=== PATIENT | male | born 1975 ===

== ENCOUNTER 2018-03-21 00:37 | Inpatient (IN) | payer MEDICAID, OTHER ==
[2018-03-21] MEDS ORDERED: Albuterol-Ipratrop 3 mg / 0.5 (3 ml) UD ONE (00:44)
[2018-03-21] MEDS ORDERED: Nitroglycerin 2% Ointment Foilpak UD TOP STA (01:08)
[2018-03-21] MEDS ORDERED: Aspirin 325 mg EC Tablets PO STA (01:08)
[2018-03-21] MEDS ORDERED: Aspirin 325 mg EC Tablets PO ONE (01:21)
[2018-03-21] MEDS ORDERED: Nitroglycerin 2% Ointment Foilpak UD TOP ONE (01:21)
[2018-03-21 01:25] LABS: BASO # 0.1 K/uL (0.0-0.2); BASO % 0.6 % (0.0-2.0); EOS # 0.2 K/uL (0.0-0.7); EOS % 1.8 % (0.0-4.0); HEMOGLOBIN 15.3 g/dL (12.0-18.0); LYMPH # 1.3 K/uL (1.0-4.3); MEAN CELL VOLUME 80.1 fL (80.0-94.0); MEAN CORPUSCULAR HEMOGLOBIN 26.7 pg (27.0-31.0); MEAN CORPUSCULAR HGB CONC 33.3 g/dL (33.0-37.0); MEAN PLATELET VOLUME 8.8 fL (7.2-11.7); MONO # 0.6 K/uL (0.0-0.8); MONO % 5.6 % (0.0-10.0); NEUT # 8.6 K/uL (1.8-7.0); NRBC % 0.2 % (0.0-2.0); RBC 5.72 Mil/uL (4.40-5.90); RED CELL DISTRIBUTION WIDTH 17.2 % (11.5-14.5); WHITE BLOOD COUNT 10.8 K/uL (4.8-10.8)
[2018-03-21 01:41] LABS: INR 1.1; PROTHROMBIN TIME 12.4 SECONDS (9.7-12.2)
[2018-03-21 01:53] LABS: URINE BILIRUBIN NEGATIVE (NEGATIVE); URINE BLOOD NEGATIVE (NEGATIVE); URINE CLARITY Clear (Clear); URINE COLOR Straw (YELLOW); URINE GLUCOSE (UA) 1+ mg/dL (Normal); URINE LEUKOCYTE ESTERASE NEG Leu/uL (Negative); URINE PROTEIN 3+ mg/dL (NEGATIVE); URINE UROBILINOGEN NORMAL mg/dL (0.2-1.0)
[2018-03-21] MEDS ORDERED: Metoprolol 1 mg/ml Inj IVP STA (01:55)
[2018-03-21 02:01] LABS: ALBUMIN 4.3 g/dL (3.5-5.0); CALCIUM 9.2 mg/dl (8.6-10.4)
[2018-03-21] MEDS ORDERED: Metoprolol 1 mg/ml Inj IVP ONE (02:01)
[2018-03-21] MEDS ORDERED: Morphine 4 MG/ML VIAL ONE (02:02)
[2018-03-21 02:09] LABS: BARBITURATES, UR NEGATIVE (NEGATIVE); BENZODIAZEPINES, UR NEGATIVE (NEGATIVE); OPIATES, UR NEGATIVE (NEGATIVE); PHENCYCLIDINE, UR NEGATIVE (NEGATIVE)
[2018-03-21 02:30] LABS: CK-MB 3.71 ng/mL (0.0-3.38); TROPONIN I 0.372 ng/mL (0.00-0.120)
[2018-03-21] MEDS ORDERED: Potassium Chloride 20 mEq/15 ml LIQ UD PO STA ×2 (02:35→05:04)
[2018-03-21] MEDS ORDERED: Potassium Chloride 20 mEq/15 ml LIQ UD ONE (02:46)
--- NOTE | 2018-03-21 02:54 | C.PDOC ---
History Of Present Illness 42 y/o male with a PMHx of hypertension brought in by EMS complaining of shortness of breath and chest pain for 1 hour. 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 Pain has been worsening since onset. On arrival patient is tachycardiac, tachypnic, and diaphoretic with O2 sat of 90% on room air. Patient has rales bilaterally, nebulizer treatment started by nurse in triage. Time Seen by Provider: 03/21/18 01:01 Chief Complaint (Nursing): Shortness Of Breath History Per: Patient History/Exam Limitations: no limitations Onset/Duration Of Symptoms: Hrs Current Symptoms Are (Timing): Still Present Associated Symptoms: Sweating, Chest Pain Additional History Per: EMS Past Medical History Reviewed: Historical Data, Nursing Documentation, Vital Signs Vital Signs: Last Vital Signs Temp 98.9 F 03/21/18 00:54 Pulse 106 H 03/21/18 05:25 Resp 21 03/21/18 05:01 BP 191/131 H 03/21/18 05:01 Pulse Ox 97 03/21/18 05:01 - Medical History PMH: HTN Surgical History: No Surg Hx Family History: States: No Known Family Hx - Social History Hx Tobacco Use: No Hx Alcohol Use: No Hx Substance Use: No Review Of Systems Except As Marked, All Systems Reviewed And Found Negative. Constitutional: Positive for: Sweats Eyes: Negative for: Vision Change Cardiovascular: Positive for: Chest Pain Respiratory: Positive for: Shortness of Breath Gastrointestinal: Negative for: Nausea, Vomiting Musculoskeletal: Negative for: Leg Pain (or swelling) Neurological: Negative for: Weakness, Numbness, Headache, Dizziness Physical Exam - Physical Exam Appears: In Acute Distress (SOB, diaphoretic, tachycardic, tachypnic) Skin: Warm, Diaphoretic Head: Atraumatic, Normacephalic Eye(s): bilateral: Normal Inspection, PERRL, EOMI Nose: Normal Oral Mucosa: Moist Neck: Normal ROM, Supple Chest: Symmetrical, No Tenderness Cardiovascular: Rhythm Regular (tachycardic), No Murmur Respiratory: Rales (b/l), No Rhonchi, No Wheezing Gastrointestinal/Abdominal: Soft, No Tenderness, No Distention Back: Normal Inspection, No CVA Tenderness, No Vertebral Tenderness Extremity: Pedal Edema (1+), No Calf Tenderness Extremity: Bilateral: Atraumatic, Normal Color And Temperature, Normal ROM Pulses: Left Dorsalis Pedis: Normal, Right Dorsalis Pedis: Normal Neurological/Psych: Oriented x3, Normal Speech, Normal Cognition, Normal Motor, Normal Sensation ED Course And Treatment - Laboratory Results Result Diagrams: 03/21/18 01:22 03/21/18 01:23 ECG: Interpreted By Me, Viewed By Me (and ED attending, Dr. Becker) ECG Rhythm: Sinus Tachycardia, ST/T Changes (ST elevations at anterior leads) ECG Interpretation: Abnormal Rate From EC O2 Sat by Pulse Oximetry: 97 (Non-Rebreather) Pulse Ox Interpretation: Normal Progress Note: Initiated cardiac work-up including EKG, CXR, and labs with cardiac enzymes. Patient given 325 mg Aspirin PO and 40 mg Lasix IV, with NTG 2 % applied topically. Patient continuing to complain of persistent chest pain. Ordered IV Morphine. Ordered 5mg Metoprolol. On reevaluation, heart rate decreased to mid 90s. Labs reviewed and are significant for (+) troponin 0.37, hypokalemia, elevated CK-MB. Ordered 20 meq potassium chloride PO. 2:31 am Spoke with patients PMD, Dr. Garcia, who agrees with plan for admission to ICU and requests Dr. Cabrera for field assistant consult. 2:[address] Norwood, who accepts patient for admission to ICU and recommends holding the heparin drip. Repeat EKG shows anteriolateral ST and T changes, at 95 bpm Disposition Counseled Patient/Family Regarding: Studies Performed, Diagnosis - Disposition Disposition: HOSPITALIZED Disposition Time: 02:52 Condition: SERIOUS - POA Core Measure Indicators: Chest Pain - Clinical Impression Clinical Impression: Acute VA, Hypokalemia, Renal insufficiency, Hypertension - PA / ASSOCIATE PROFESSOR OF COUNSELING / Resident Statement MD/DO has reviewed & agrees with the documentation as recorded. - Scribe Statement The provider has reviewed the documentation as recorded by the Scribe (Hortensia Mireles) All medical record entries made by the Scribe were at my direction and personally dictated by me. I have reviewed the chart and agree that the record accurately reflects my personal performance of the history, physical exam, medical decision making, and the department course for this patient. I have also personally directed, reviewed, and agree with the discharge instructions and disposition. Decision To Admit - Pt Status Changed To: Hospital Disposition Of: Inpatient - Admit Certification Admit to Inpatient:: After my assessment, the patient will require hospitalization for at least two midnights. This is because of the severity of symptoms shown, intensity of services needed, and/or the medical risk in this patient being treated as an outpatient. - InPatient: Physician Admission Certification: I certify that this patient requires 2 or more midnights of care for the following reason:: Patient with acute VA will be admitted to ICU - . Bed Request Type: ICU Patient Diagnosis: Acute VA, Hypokalemia, Renal insufficiency, Hypertension
--- NOTE | 2018-03-21 02:55 | C.PDOC ---
Chief Complaint (Nursing): Shortness Of Breath Past Medical History Vital Signs: Last Vital Signs Temp 98.9 F 03/21/18 00:54 Pulse 90 03/21/18 02:18 Resp 28 H 03/21/18 02:18 BP 200/137 H 03/21/18 02:18 Pulse Ox 97 03/21/18 02:18 - Medical History PMH: HTN - Social History Hx Alcohol Use: No Hx Substance Use: No ED Course And Treatment - Laboratory Results Result Diagrams: 03/21/18 01:22 03/21/18 01:23 O2 Sat by Pulse Oximetry: 97 Disposition - Disposition Disposition: HOSPITALIZED Disposition Time: 02:52 Condition: SERIOUS Forms: [facility] (Turkish) - Clinical Impression Clinical Impression: Acute KS, Hypokalemia, Renal insufficiency, Hypertension Decision To Admit - Pt Status Changed To: Hospital Disposition Of: Inpatient - Admit Certification Admit to Inpatient:: After my assessment, the patient will require hospitalization for at least two midnights. This is because of the severity of symptoms shown, intensity of services needed, and/or the medical risk in this patient being treated as an outpatient. - InPatient: Physician Admission Certification: I certify that this patient requires 2 or more midnights of care for the following reason:: Patient with acute KS will be admitted to ICU - . Bed Request Type: ICU Admitting Physician: Wes Garcia Patient Diagnosis: Acute KS, Hypokalemia, Renal insufficiency, Hypertension
[2018-03-21] MEDS ORDERED: Nitroglycerin 50mg in D5W 50 MG/250 ML BOTTLE IV SCH (04:45)
--- NOTE | 2018-03-21 05:03 | CP.PCM.CON ---
History of Present Illness - History of Present Illness History of Present Illness: 42 M with h/o long time HTN, not taking medications as he felt fine for years, obese around 10 pm last night c/o sob, and some chest pain, sob got worse, breathing became shallow and fast and hence he came to ER. In ER BP was 240/160 range, SOB, hr in 130's, CXR showed interstitial edema. EKG initial read as anterior st elevations, but not clearly visible on er assessment, repeat EKG showed LVH with strain pattern. Initial labs showed creat 1.9, trop 0.4. Patient was given NTG paste, iv metoprolol, lasix, in ER and felt significantly better, bp 199/130 hr in 90's, RR 18/min, patient talking calmly, no distress. Denies orthopnea/pnd, had 1 lesser episode a wk ago. 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 Review of Systems - Review of Systems All systems: reviewed and no additional remarkable complaints except (HPI) Past Patient History - Past Medical History & Family History Past Medical History?: Yes - Past Social History Smoking Status: Never Smoked Alcohol: None Home Situation {Lives}: With Family Domestic Violence: Negative - CARDIAC Hx Cardiac Disorders: Yes Hx Hypertension: Yes - PULMONARY Hx Respiratory Disorders: No - NEUROLOGICAL Hx Neurological Disorder: No - HEENT Hx HEENT Problems: No Hx Cataracts: Yes - RENAL Hx Chronic Kidney Disease: No - ENDOCRINE/METABOLIC Hx Endocrine Disorders: Yes Hx Diabetes Mellitus Type 2: Yes - HEMATOLOGICAL/ONCOLOGICAL Hx Blood Disorders: No - INTEGUMENTARY Hx Dermatological Problems: No - MUSCULOSKELETAL/RHEUMATOLOGICAL Hx Musculoskeletal Disorders: No - GASTROINTESTINAL Hx Gastrointestinal Disorders: No - GENITOURINARY/GYNECOLOGICAL Hx Genitourinary Disorders: No - PSYCHIATRIC Hx Psychophysiologic Disorder: No Hx Substance Use: No - SURGICAL HISTORY Hx Surgeries: Yes Hx Herniorrhaphy: Yes Other/Comment: prostate sx - ANESTHESIA Hx Anesthesia: Yes Hx Anesthesia Reactions: No Hx Malignant Hyperthermia: No Has any member of the family had a problem w/ anesthesia?: No Meds Allergies/Adverse Reactions: Allergies Allergy/AdvReac Type Severity Reaction Status Date / Time No Known Allergies Allergy Verified 03/21/18 01:04 - Medications Medications: Current Medications Carvedilol (Coreg) 6.25 mg PO BID RORO Furosemide (Lasix) 40 mg IVP DAILY RORO Hydralazine HCl (Apresoline) 25 mg PO TID RORO Nitroglycerin/Dextrose (Nitroglycerin 50 Mg/250 Ml D5w) 50 mg in 250 mls @ 30 mls/hr IV .Q8H20M RORO; 100 MCG/MIN PRN Reason: Protocol Physical Exam - Additional Findings Additional findings: * HEENT MAXIMILIAN * Neck supple * Chest rales b/l, slight prolonged expiration * CVS Regular, no gallop, or murmur * PA soft, obese * Ext 2+ edema b/l * LAUNCH ENGINEER awake, oriented x3 no fnd * Skin normal turgor. * Results - Vital Signs Recent Vital Signs: Last Vital Signs Temp 98.9 F 03/21/18 00:54 Pulse 100 H 03/21/18 04:19 Resp 21 03/21/18 04:19 BP 191/131 H 03/21/18 04:19 Pulse Ox 96 03/21/18 04:19 - Labs Result Diagrams: 03/21/18 01:22 03/21/18 01:23 Labs: Laboratory Results - last 24 hr 03/21/18 03/21/18 03/21/18 01:22 01:23 01:23 WBC 10.8 RBC 5.72 Hgb 15.3 Hct 45.8 MCV 80.1 MCH 26.7 L MCHC 33.3 RDW 17.2 H Plt Count 245 MPV 8.8 Neut % (Auto) 80.0 H Lymph % (Auto) 12.0 L [place] % (Auto) 5.6 Eos % (Auto) 1.8 Baso % (Auto) 0.6 Neut # (Auto) 8.6 H Lymph # (Auto) 1.3 [place] # (Auto) 0.6 Eos # (Auto) 0.2 Baso # (Auto) 0.1 PT 12.4 H INR 1.1 APTT 36 H D-Dimer, Quantitative 244 H Sodium 145 Potassium 3.1 L Chloride 107 Carbon Dioxide 27 Anion Gap 14 BUN 24 H Creatinine 1.9 H Est GFR ( Amer) 48 Est GFR (Non-Af Amer) 39 Random Glucose 156 H Calcium 9.2 Total Bilirubin 0.7 AST 43 ALT 77 H Alkaline Phosphatase 147 H Total Creatine Kinase 88 CK-MB (Mass) 3.71 H Troponin I 0.3720 H* Total Protein 8.7 H Albumin 4.3 Globulin 4.4 H Albumin/Globulin Ratio 1.0 Urine Color Urine Clarity Urine pH Ur Specific [place] Urine Protein Urine Glucose (UA) Urine Ketones Urine Blood Urine Nitrate Urine Bilirubin Urine Urobilinogen Ur Leukocyte Esterase Urine WBC (Auto) Urine RBC (Auto) Urine Opiates Screen Urine Methadone Screen Ur Barbiturates Screen Ur Phencyclidine Scrn Ur Amphetamines Screen U Benzodiazepines Scrn U Oth Cocaine Metabols U Cannabinoids Screen 03/21/18 03/21/18 01:44 01:44 WBC RBC Hgb Hct MCV MCH MCHC RDW Plt Count MPV Neut % (Auto) Lymph % (Auto) [place] % (Auto) Eos % (Auto) Baso % (Auto) Neut # (Auto) Lymph # (Auto) [place] # (Auto) Eos # (Auto) Baso # (Auto) PT INR APTT D-Dimer, Quantitative Sodium Potassium Chloride Carbon Dioxide Anion Gap BUN Creatinine Est GFR ( Amer) Est GFR (Non-Af Amer) Random Glucose Calcium Total Bilirubin AST ALT Alkaline Phosphatase Total Creatine Kinase CK-MB (Mass) Troponin I Total Protein Albumin Globulin Albumin/Globulin Ratio Urine Color Straw Urine Clarity Clear Urine pH 6.0 Ur Specific [place] 1.010 Urine Protein 3+ H Urine Glucose (UA) 1+ H Urine Ketones Negative Urine Blood Negative Urine Nitrate Negative Urine Bilirubin Negative Urine Urobilinogen Normal Ur Leukocyte Esterase Neg Urine WBC (Auto) 3 Urine RBC (Auto) 1 Urine Opiates Screen Negative Urine Methadone Screen Negative Ur Barbiturates Screen Negative Ur Phencyclidine Scrn Negative Ur Amphetamines Screen Negative U Benzodiazepines Scrn Negative U Oth Cocaine Metabols Negative U Cannabinoids Screen Negative Assessment & Plan - Assessment and Plan (Free Text) Assessment: * Acute HTN related heart failure * HTN renal injury, with pritienuria likely transient as total prol and albumin normal * Non compliance * Obese * Possible sleep apea Plan: * Stat repeat trop if relatively unchanged then continue treating htn heart disease, if significantly elevated may need anticoagulation * start with high dose, nitro drip then taper, * Nitrates, arteriodilators, betablocker as initial regime, lasix as needed. * Echo * GI/DVT prophylaxis * Random prot/creat ratio, 24 hr protein * ASA * Counselled about compliance * See orders for detail.
[2018-03-21 06:30] LABS: CK-MB 71.1 ng/mL (0.0-3.38); TROPONIN I 10.9 ng/mL (0.00-0.120)
--- NOTE | 2018-03-21 07:58 | CP.PCM.HP ---
History of Present Illness - History of Present Illness History of Present Illness: Chief Complaint : Shortness Of Breath History Of Present Illness 42 M with h/o long time HTN, brought in by EMS complaining of shortness of breath and chest pain for 1 hour. pt reports not taking medications as he felt fine for years, obese around 10 pm last night c/o sob, and some chest pain, sob got worse, breathing became shallow and fast and hence he came to ER. In ER BP was 240/160 range, SOB, hr in 130's, CXR showed interstitial edema. EKG initial read as anterior st elevations, but not clearly visible on er assessment, repeat EKG showed LVH with strain pattern. Initial labs showed creat 1.9, trop 0.4. Patient was given NTG paste, iv metoprolol, lasix, in ER and felt significantly better, bp 199/130 hr in 90's, RR 18/min, patient talking calmly, no distress. Denies orthopnea/pnd, had 1 lesser episode a wk ago. 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 Present on Admission - Present on Admission Any Indicators Present on Admission: Yes Review of Systems - Review of Systems Systems not reviewed;Unavailable: Acuity of Condition - Constitutional Constitutional: Fatigue, Lethargy, Weakness - EENT Eyes: absent: As Per HPI, Blind Spots, Blurred Vision, Change in Vision, Decreased Night Vision, Diplopia, Discharge, Dry Eye, Exophthalmos, Floaters, Irritation, Itchy Eyes, Loss of Peripheral Vision, Pain, Photophobia, Requires Corrective Lenses, Sees Flashes, Spots in Vision, Tunnel Vision, Other Visual Disturbances, Loss of Vision, Other Nose/Mouth/Throat: absent: As Per HPI, Epistaxis, Nasal Congestion, Nasal Discharge, Nasal Obstruction, Nasal Trauma, Nose Pain, Post Nasal Drip, Sinus Pain, Sinus Pressure, Bleeding Gums, Change in Voice, Dental Pain, Dry Mouth, Dysphagia, Halitosis, Hoarsness, Lip Swelling, Mouth Lesions, Mouth Pain, Odynophagia, Sore Throat, Throat Swelling, Tongue Swelling, Facial Pain, Neck Pain, Neck Mass, Other - Cardiovascular Cardiovascular: Chest Pain, Diaphoresis, Dyspnea on Exertion - Respiratory Respiratory: Dyspnea - Gastrointestinal Gastrointestinal: absent: As Per HPI, Abdominal Pain, Belching, Bloating, Change in Bowel Habits, Change in Stool Character, Coffee Ground Emesis, Constipation, Cramping, Diarrhea, Dyspepsia, Dysphagia, Early Satiety, Excessive Flatus, Fecal Incontinence, Heartburn, Hematemesis, Hematochezia, Loose Stools, Melena, Nausea, Odynophagia, Temesmus, Vomiting, Other Past Patient History - Past Medical History & Family History Past Medical History?: Yes - Past Social History Smoking Status: Never Smoked - CARDIAC Hx Hypertension: Yes - PULMONARY Hx Respiratory Disorders: No - NEUROLOGICAL Hx Neurological Disorder: No - HEENT Hx HEENT Problems: No Hx Cataracts: Yes - RENAL Hx Chronic Kidney Disease: No - ENDOCRINE/METABOLIC Hx Endocrine Disorders: Yes Hx Diabetes Mellitus Type 2: Yes - HEMATOLOGICAL/ONCOLOGICAL Hx Blood Disorders: No - INTEGUMENTARY Hx Dermatological Problems: No - MUSCULOSKELETAL/RHEUMATOLOGICAL Hx Falls: No - GASTROINTESTINAL Hx Gastrointestinal Disorders: No - GENITOURINARY/GYNECOLOGICAL Hx Genitourinary Disorders: No - PSYCHIATRIC Hx Substance Use: No - SURGICAL HISTORY Hx Surgeries: Yes Hx Herniorrhaphy: Yes Other/Comment: prostate sx - ANESTHESIA Hx Anesthesia: Yes Hx Anesthesia Reactions: No Hx Malignant Hyperthermia: No Has any member of the family had a problem w/ anesthesia?: No Meds Allergies/Adverse Reactions: Allergies Allergy/AdvReac Type Severity Reaction Status Date / Time No Known Allergies Allergy Verified 03/21/18 01:04 Physical Exam - Constitutional Appears: Well, No Acute Distress - Head Exam Head Exam: NORMAL INSPECTION - Eye Exam Eye Exam: EOMI, Normal appearance, PERRL Pupil Exam: NORMAL ACCOMODATION, PERRL - ENT Exam ENT Exam: Mucous Membranes Moist, Normal Exam - Respiratory Exam Respiratory Exam: Clear to Auscultation Bilateral, NORMAL BREATHING PATTERN - Cardiovascular Exam Cardiovascular Exam: Tachycardia, +S1, +S2, +S4 - GI/Abdominal Exam GI & Abdominal Exam: Normal Bowel Sounds, Soft. absent: Tenderness Results - Vital Signs Recent Vital Signs: Last Vital Signs Temp 98.6 F 03/21/18 06:00 Pulse 98 H 03/21/18 06:40 Resp 27 H 03/21/18 06:40 BP 179/117 H 03/21/18 06:20 Pulse Ox 95 03/21/18 06:40 - Labs Result Diagrams: 03/22/18 06:32 03/22/18 05:22 Labs: Laboratory Results - last 24 hr 03/21/18 03/21/18 03/21/18 01:22 01:23 01:23 WBC 10.8 RBC 5.72 Hgb 15.3 Hct 45.8 MCV 80.1 MCH 26.7 L MCHC 33.3 RDW 17.2 H Plt Count 245 MPV 8.8 Neut % (Auto) 80.0 H Lymph % (Auto) 12.0 L [place] % (Auto) 5.6 Eos % (Auto) 1.8 Baso % (Auto) 0.6 Neut # (Auto) 8.6 H Lymph # (Auto) 1.3 [place] # (Auto) 0.6 Eos # (Auto) 0.2 Baso # (Auto) 0.1 PT 12.4 H INR 1.1 APTT 36 H D-Dimer, Quantitative 244 H Sodium 145 Potassium 3.1 L Chloride 107 Carbon Dioxide 27 Anion Gap 14 BUN 24 H Creatinine 1.9 H Est GFR ( Amer) 48 Est GFR (Non-Af Amer) 39 Random Glucose 156 H Calcium 9.2 Total Bilirubin 0.7 AST 43 ALT 77 H Alkaline Phosphatase 147 H Total Creatine Kinase 88 CK-MB (Mass) 3.71 H Troponin I 0.3720 H* Total Protein 8.7 H Albumin 4.3 Globulin 4.4 H Albumin/Globulin Ratio 1.0 Urine Color Urine Clarity Urine pH Ur Specific [place] Urine Protein Urine Glucose (UA) Urine Ketones Urine Blood Urine Nitrate Urine Bilirubin Urine Urobilinogen Ur Leukocyte Esterase Urine WBC (Auto) Urine RBC (Auto) Urine Opiates Screen Urine Methadone Screen Ur Barbiturates Screen Ur Phencyclidine Scrn Ur Amphetamines Screen U Benzodiazepines Scrn U Oth Cocaine Metabols U Cannabinoids Screen 03/21/18 03/21/18 03/21/18 01:44 01:44 04:31 WBC RBC Hgb Hct MCV MCH MCHC RDW Plt Count MPV Neut % (Auto) Lymph % (Auto) [place] % (Auto) Eos % (Auto) Baso % (Auto) Neut # (Auto) Lymph # (Auto) [place] # (Auto) Eos # (Auto) Baso # (Auto) PT INR APTT D-Dimer, Quantitative Sodium Potassium Chloride Carbon Dioxide Anion Gap BUN Creatinine Est GFR ( Amer) Est GFR (Non-Af Amer) Random Glucose Calcium Total Bilirubin AST ALT Alkaline Phosphatase Total Creatine Kinase CK-MB (Mass) 71.1 H Troponin I 10.9000 H* Total Protein Albumin Globulin Albumin/Globulin Ratio Urine Color Straw Urine Clarity Clear Urine pH 6.0 Ur Specific [place] 1.010 Urine Protein 3+ H Urine Glucose (UA) 1+ H Urine Ketones Negative Urine Blood Negative Urine Nitrate Negative Urine Bilirubin Negative Urine Urobilinogen Normal Ur Leukocyte Esterase Neg Urine WBC (Auto) 3 Urine RBC (Auto) 1 Urine Opiates Screen Negative Urine Methadone Screen Negative Ur Barbiturates Screen Negative Ur Phencyclidine Scrn Negative Ur Amphetamines Screen Negative U Benzodiazepines Scrn Negative U Oth Cocaine Metabols Negative U Cannabinoids Screen Negative Assessment & Plan (1) Acute LA Status: Acute (2) CAD (coronary artery disease) Status: Acute (3) Hypertension Status: Acute (4) Non compliance w medication regimen Status: Acute
[2018-03-21] MEDS: Heparin25000 units/250ml 1/2NS 25,000 UNITS/250 ML BAG IV PRN (08:55)
--- NOTE | 2018-03-21 09:16 | RAD ---
HISTORY: f/u chf COMPARISON: Portable chest 03/21/2018, 1:15 a.m.. FINDINGS: LUNGS: No active pulmonary disease. PLEURA: No significant pleural effusion identified, no pneumothorax apparent. CARDIOVASCULAR: Cardiomegaly reiterated with mild pulmonary venous congestion again evident, not significantly changed in the interval. OSSEOUS STRUCTURES: No significant abnormalities. VISUALIZED UPPER ABDOMEN: Normal. OTHER FINDINGS: None. IMPRESSION: Mild pulmonary vascular congestion appreciated, not simply changed in the interval. No definitive infiltrate or pleural effusion identified bilaterally.
[2018-03-21] MEDS ORDERED: Pantoprazole 40 mg EC Tab PO SCH (10:00)
[2018-03-21] MEDS: Acetylcysteine 20% Inhal Soln (4ml) PO SCH ×2 (10:57→22:45)
--- NOTE | 2018-03-21 11:20 | RAD ---
PROCEDURE: CHEST RADIOGRAPH, 1 VIEW HISTORY: SOB COMPARISON: None available. FINDINGS: LUNGS: Increased opacities appreciate in the bilateral lung chan of the function of grossly increased reticular markings without definite alveolitis. PLEURA: No pneumothorax or pleural fluid seen. CARDIOVASCULAR: Cardiomegaly is apparent. The vascular markings are somewhat obscured by a markedly increased reticular markings. Active CHF is suspected. OSSEOUS STRUCTURES: No significant abnormalities. VISUALIZED UPPER ABDOMEN: Normal. OTHER FINDINGS: None. IMPRESSION: Consider active CHF versus interstitial pneumonitis.
--- NOTE | 2018-03-21 22:52 | CP.PCM.CON ---
History of Present Illness - History of Present Illness History of Present Illness: CC: Episode of Chest Pain yesterday HPI:42 M with hx of HTN, non compliant with mediaction admitted for Non ST elevation [place]. Started on appeopriate medaications Currently denies chest pain and dyspnea Review of Systems - Constitutional Constitutional: absent: As Per HPI, Anorexia, Chills, Daytime Sleepiness, Excessive Sweating, Fatigue, Fever, Frequent Falls, Headache, Increased Appetite , Lethargy, Malaise, Night Sweats, Snoring, Sleep Apnea, Weight Gain, Weight Loss, Weakness, Other - EENT Eyes: absent: As Per HPI, Blind Spots, Blurred Vision, Change in Vision, Decreased Night Vision, Diplopia, Discharge, Dry Eye, Exophthalmos, Floaters, Irritation, Itchy Eyes, Loss of Peripheral Vision, Pain, Photophobia, Requires Corrective Lenses, Sees Flashes, Spots in Vision, Tunnel Vision, Other Visual Disturbances, Loss of Vision, Other Ears: absent: As Per HPI, Decreased Hearing, Ear Discharge, Ear Pain, Tinnitus, Abnormal Hearing, Disequilibrium, Dizziness, Other Nose/Mouth/Throat: absent: As Per HPI, Epistaxis, Nasal Congestion, Nasal Discharge, Nasal Obstruction, Nasal Trauma, Nose Pain, Post Nasal Drip, Sinus Pain, Sinus Pressure, Bleeding Gums, Change in Voice, Dental Pain, Dry Mouth, Dysphagia, Halitosis, Hoarsness, Lip Swelling, Mouth Lesions, Mouth Pain, Odynophagia, Sore Throat, Throat Swelling, Tongue Swelling, Facial Pain, Neck Pain, Neck Mass, Other - Cardiovascular Cardiovascular: absent: As Per HPI, Acrocyanosis, Chest Pain, Chest Pain at Rest , Chest Pain with Activity, Claudication, Diaphoresis, Dyspnea, Dyspnea on Exertion, Edema, Irregular Heart Rhythm, Pain Radiating to Arm/Neck/Jaw, Leg Edema, Leg Ulcers, Lightheadedness, Orthopnea, Palpitations, Paroxysmal Nocturnal Dyspnea, Pedal Edema, Radiating Pain, Rapid Heart Rate, Slow Heart Rate, Syncope, Other - Respiratory Respiratory: absent: As Per HPI, Cough, Dyspnea, Hemoptysis, Dyspnea on Exertion , Wheezing, Snoring, Stridor, Pain on Inspiration, Chest Congestion, Excessive Mucous Production, Change in Mucous Color, Pain with Coughing, Other - Gastrointestinal Gastrointestinal: absent: As Per HPI, Abdominal Pain, Belching, Bloating, Change in Bowel Habits, Change in Stool Character, Coffee Ground Emesis, Constipation, Cramping, Diarrhea, Dyspepsia, Dysphagia, Early Satiety, Excessive Flatus, Fecal Incontinence, Heartburn, Hematemesis, Hematochezia, Loose Stools, Melena, Nausea, Odynophagia, Temesmus, Vomiting, Other - Genitourinary Genitourinary: absent: As Per HPI, Change in Urinary Stream, Difficulty Urinating, Dysuria, Flank Pain, Hematuria, Pyuria, Nocturia, Urinary Incontinence, Urinary Frequency, Urinary Hesitance, Urinary Urgency, Voiding Freq/Small Amts, Freq UTI, Hx Renal/Bladder Calculi, Hx /Renal Surgery, Bladder Distension, Other - Musculoskeletal Musculoskeletal: absent: As Per HPI, Abnormal Gait, Arthralgias, Atrophy, Back Pain, Deformity, Joint Swelling, Limited Range of Motion, Loss of Height, Muscle Cramps, Muscle Weakness, Myalgias, Neck Pain, Numbness, Radiating Pain into Limb, Stiffness, Tingling, Other - Integumentary Integumentary: absent: As Per HPI, Acne, Alopecia, Bleeding Lesions, Change in Hair, Change in Nails, Change in Pigmentation, Changing Lesions, Dry Skin, Erythema, Furuncle, Hirsutism, Lesions, New Lesions, Non-Healing Lesions, Photosensitivity, Pruritus, Rash, Skin Pain, Skin Ulcer, Sores, Striae, Swelling , Unusual Bruising, Wounds, Jaundice, Other - Neurological Neurological: absent: As Per HPI, Abnormal Gait, Abnormal Hearing, Abnormal Movements, Abnormal Speech, Behavioral Changes, Burning Sensations, Confusion, Convulsions, Disequilibrium, Dizziness, Numbness, Focal Weakness, Frequent Falls , Headaches, Lack of Coordination, Loss of Vision, Memory Loss, Paresthesias, Radicular Pain, Restless Legs, Sensory Deficit, Syncope, Tingling, Tremor, Vertigo, Weakness, Other Visual Disturbances, Other - Psychiatric Psychiatric: absent: As Per HPI, Abnormal Sleep Pattern, Anhedonia, Anxiety, Auditory Hallucinations, Behavioral Changes, Change in Appetite, Change in Libido, Confusion, Depression, Difficulty Concentrating, Hallucinations, Homicidal Ideation, Hopelessness, Irritability, Memory Loss, Mood Swings, Panic Attacks, Paranoia, Suicidal Ideation, Visual Hallucinations, Tactile Hallucinations, Other Past Patient History - Past Medical History & Family History Past Medical History?: Yes - Past Social History Smoking Status: Never Smoked - CARDIAC Hx Hypertension: Yes - PULMONARY Hx Respiratory Disorders: No - NEUROLOGICAL Hx Neurological Disorder: No - HEENT Hx HEENT Problems: No Hx Cataracts: Yes - RENAL Hx Chronic Kidney Disease: No - ENDOCRINE/METABOLIC Hx Endocrine Disorders: Yes Hx Diabetes Mellitus Type 2: Yes - HEMATOLOGICAL/ONCOLOGICAL Hx Blood Disorders: No - INTEGUMENTARY Hx Dermatological Problems: No - MUSCULOSKELETAL/RHEUMATOLOGICAL Hx Falls: No - GASTROINTESTINAL Hx Gastrointestinal Disorders: No - GENITOURINARY/GYNECOLOGICAL Hx Genitourinary Disorders: No - PSYCHIATRIC Hx Substance Use: No - SURGICAL HISTORY Hx Surgeries: Yes Hx Herniorrhaphy: Yes Other/Comment: prostate sx - ANESTHESIA Hx Anesthesia: Yes Hx Anesthesia Reactions: No Hx Malignant Hyperthermia: No Has any member of the family had a problem w/ anesthesia?: No Meds Allergies/Adverse Reactions: Allergies Allergy/AdvReac Type Severity Reaction Status Date / Time No Known Allergies Allergy Verified 03/21/18 01:04 - Medications Medications: Current Medications Acetylcysteine (Acetylcysteine 20%) 8 ml PO Q12H [facility] Stop: 03/22/18 22:16 Last Admin: 03/21/18 10:57 Dose: 8 ml Aspirin (Ecotrin) 325 mg PO DAILY [facility] Carvedilol (Coreg) 25 mg PO BID [facility] Last Admin: 03/21/18 18:34 Dose: 25 mg Clopidogrel Bisulfate (Plavix) 75 mg PO DAILY [facility] Last Admin: 03/21/18 10:43 Dose: Not Given Famotidine (Pepcid) 20 mg PO DAILY [facility] Last Admin: 03/21/18 10:41 Dose: 20 mg Furosemide (Lasix) 40 mg IVP DAILY [facility] Last Admin: 03/21/18 10:41 Dose: 40 mg Hydralazine HCl (Apresoline) 25 mg PO TID [facility] Last Admin: 03/21/18 18:29 Dose: 25 mg Heparin Sodium/Sodium Chloride (Heparin 47943 Units/250ml 1/2 Normal Saline) 25 ,000 units in 250 mls @ 18.289 mls/hr IV .[id number] PRN; Protocol; 12 UNITS/KG/HR PRN Reason: ADJUST RATE PER PROTOCOL Last Titration: 03/21/18 17:00 Dose: 9 units/kg/hr, 13.717 mls/hr Rosuvastatin Calcium (Crestor) 10 mg PO HS [facility] Physical Exam - Head Exam Head Exam: ATRAUMATIC, NORMAL INSPECTION - Eye Exam Eye Exam: EOMI, Normal appearance Pupil Exam: NORMAL ACCOMODATION, PERRL - ENT Exam ENT Exam: Mucous Membranes Moist, Normal Exam - Neck Exam Neck exam: Positive for: Normal Inspection - Respiratory Exam Respiratory Exam: Clear to Auscultation Bilateral - Cardiovascular Exam Cardiovascular Exam: REGULAR RHYTHM, +S1, +S2 - GI/Abdominal Exam GI & Abdominal Exam: Normal Bowel Sounds - Extremities Exam Extremities exam: Positive for: full ROM - Neurological Exam Neurological exam: Alert, CN II-XII Intact, Oriented x3 - Skin Skin Exam: Warm Results - Vital Signs Recent Vital Signs: Last Vital Signs Temp 98.3 F 03/21/18 20:00 Pulse 77 03/21/18 22:30 Resp 17 03/21/18 22:30 BP 145/85 03/21/18 22:08 Pulse Ox 94 L 03/21/18 22:30 - Labs Result Diagrams: 03/21/18 01:22 03/21/18 01:23 Labs: Laboratory Results - last 24 hr 03/21/18 03/21/18 03/21/18 01:22 01:23 01:23 WBC 10.8 RBC 5.72 Hgb 15.3 Hct 45.8 MCV 80.1 MCH 26.7 L MCHC 33.3 RDW 17.2 H Plt Count 245 MPV 8.8 Neut % (Auto) 80.0 H Lymph % (Auto) 12.0 L [place] % (Auto) 5.6 Eos % (Auto) 1.8 Baso % (Auto) 0.6 Neut # (Auto) 8.6 H Lymph # (Auto) 1.3 [place] # (Auto) 0.6 Eos # (Auto) 0.2 Baso # (Auto) 0.1 PT 12.4 H INR 1.1 APTT 36 H D-Dimer, Quantitative 244 H Sodium 145 Potassium 3.1 L Chloride 107 Carbon Dioxide 27 Anion Gap 14 BUN 24 H Creatinine 1.9 H Est GFR ( Amer) 48 Est GFR (Non-Af Amer) 39 Random Glucose 156 H Hemoglobin A1c Calcium 9.2 Magnesium Total Bilirubin 0.7 AST 43 ALT 77 H Alkaline Phosphatase 147 H Total Creatine Kinase 88 CK-MB (Mass) 3.71 H Troponin I 0.3720 H* Total Protein 8.7 H Albumin 4.3 Globulin 4.4 H Albumin/Globulin Ratio 1.0 Urine Color Urine Clarity Urine pH Ur Specific [place] Urine Protein Urine Glucose (UA) Urine Ketones Urine Blood Urine Nitrate Urine Bilirubin Urine Urobilinogen Ur Leukocyte Esterase Urine WBC (Auto) Urine RBC (Auto) Urine Opiates Screen Urine Methadone Screen Ur Barbiturates Screen Ur Phencyclidine Scrn Ur Amphetamines Screen U Benzodiazepines Scrn U Oth Cocaine Metabols U Cannabinoids Screen 03/21/18 03/21/18 03/21/18 01:44 01:44 04:31 WBC RBC Hgb Hct MCV MCH MCHC RDW Plt Count MPV Neut % (Auto) Lymph % (Auto) [place] % (Auto) Eos % (Auto) Baso % (Auto) Neut # (Auto) Lymph # (Auto) [place] # (Auto) Eos # (Auto) Baso # (Auto) PT INR APTT D-Dimer, Quantitative Sodium Potassium Chloride Carbon Dioxide Anion Gap BUN Creatinine Est GFR ( Amer) Est GFR (Non-Af Amer) Random Glucose Hemoglobin A1c Calcium Magnesium Total Bilirubin AST ALT Alkaline Phosphatase Total Creatine Kinase CK-MB (Mass) 71.1 H Troponin I 10.9000 H* Total Protein Albumin Globulin Albumin/Globulin Ratio Urine Color Straw Urine Clarity Clear Urine pH 6.0 Ur Specific [place] 1.010 Urine Protein 3+ H Urine Glucose (UA) 1+ H Urine Ketones Negative Urine Blood Negative Urine Nitrate Negative Urine Bilirubin Negative Urine Urobilinogen Normal Ur Leukocyte Esterase Neg Urine WBC (Auto) 3 Urine RBC (Auto) 1 Urine Opiates Screen Negative Urine Methadone Screen Negative Ur Barbiturates Screen Negative Ur Phencyclidine Scrn Negative Ur Amphetamines Screen Negative U Benzodiazepines Scrn Negative U Oth Cocaine Metabols Negative U Cannabinoids Screen Negative 03/21/18 03/21/18 03/21/18 11:16 11:16 15:20 WBC RBC Hgb Hct MCV MCH MCHC RDW Plt Count MPV Neut % (Auto) Lymph % (Auto) [place] % (Auto) Eos % (Auto) Baso % (Auto) Neut # (Auto) Lymph # (Auto) [place] # (Auto) Eos # (Auto) Baso # (Auto) PT INR APTT 152 H* D D-Dimer, Quantitative Sodium Potassium Chloride Carbon Dioxide Anion Gap BUN Creatinine Est GFR ( Amer) Est GFR (Non-Af Amer) Random Glucose Hemoglobin A1c 5.4 Calcium Magnesium 1.6 Total Bilirubin AST ALT Alkaline Phosphatase Total Creatine Kinase CK-MB (Mass) Troponin I 80.0000 H* Total Protein Albumin Globulin Albumin/Globulin Ratio Urine Color Urine Clarity Urine pH Ur Specific [place] Urine Protein Urine Glucose (UA) Urine Ketones Urine Blood Urine Nitrate Urine Bilirubin Urine Urobilinogen Ur Leukocyte Esterase Urine WBC (Auto) Urine RBC (Auto) Urine Opiates Screen Urine Methadone Screen Ur Barbiturates Screen Ur Phencyclidine Scrn Ur Amphetamines Screen U Benzodiazepines Scrn U Oth Cocaine Metabols U Cannabinoids Screen 03/21/18 17:08 WBC RBC Hgb Hct MCV MCH MCHC RDW Plt Count MPV Neut % (Auto) Lymph % (Auto) [place] % (Auto) Eos % (Auto) Baso % (Auto) Neut # (Auto) Lymph # (Auto) [place] # (Auto) Eos # (Auto) Baso # (Auto) PT INR APTT D-Dimer, Quantitative Sodium Potassium Chloride Carbon Dioxide Anion Gap BUN Creatinine Est GFR ( Amer) Est GFR (Non-Af Amer) Random Glucose Hemoglobin A1c Calcium Magnesium Total Bilirubin AST ALT Alkaline Phosphatase Total Creatine Kinase CK-MB (Mass) Troponin I 72.2000 H* Total Protein Albumin Globulin Albumin/Globulin Ratio Urine Color Urine Clarity Urine pH Ur Specific [place] Urine Protein Urine Glucose (UA) Urine Ketones Urine Blood Urine Nitrate Urine Bilirubin Urine Urobilinogen Ur Leukocyte Esterase Urine WBC (Auto) Urine RBC (Auto) Urine Opiates Screen Urine Methadone Screen Ur Barbiturates Screen Ur Phencyclidine Scrn Ur Amphetamines Screen U Benzodiazepines Scrn U Oth Cocaine Metabols U Cannabinoids Screen Assessment & Plan - Assessment and Plan (Free Text) Assessment: 42 male admitted with ACS peak Trop 70 CKD with Creatinine of 1.9 Cardiac cath tomorrow Renal consult Continue anti thrombotic therapy NPO after MN except meds
[2018-03-21] MEDS ORDERED: Sodium Chloride 0.45% 1,000 ML IV SCH (23:15)
[2018-03-22] MEDS: Heparin25000 units/250ml 1/2NS 25,000 UNITS/250 ML BAG IV PRN ×2 (02:21→06:37)
[2018-03-22 05:33] LABS: BASO # 0.1 K/uL (0.0-0.2); BASO % 0.6 % (0.0-2.0); EOS # 0.1 K/uL (0.0-0.7); LYMPH # 1.5 K/uL (1.0-4.3); LYMPH % 14.3 % (20.0-40.0); MEAN CELL VOLUME 80.5 fL (80.0-94.0); MEAN CORPUSCULAR HEMOGLOBIN 26.8 pg (27.0-31.0); MEAN CORPUSCULAR HGB CONC 33.3 g/dL (33.0-37.0); MEAN PLATELET VOLUME 8.9 fL (7.2-11.7); MONO % 9.2 % (0.0-10.0); NEUT # 7.9 K/uL (1.8-7.0); NEUT % 74.9 % (50.0-75.0); NRBC % 0.2 % (0.0-2.0); RBC 4.72 Mil/uL (4.40-5.90); RED CELL DISTRIBUTION WIDTH 17.2 % (11.5-14.5); WHITE BLOOD COUNT 10.5 K/uL (4.8-10.8)
[2018-03-22 05:53] LABS: HEMOGLOBIN 12.7 g/dL (12.0-18.0)
[2018-03-22 06:34] LABS: HEMOGLOBIN 11.9 g/dL (12.0-18.0); MEAN CELL VOLUME 80.4 fL (80.0-94.0); MEAN CORPUSCULAR HEMOGLOBIN 26.7 pg (27.0-31.0); MEAN CORPUSCULAR HGB CONC 33.3 g/dL (33.0-37.0); MEAN PLATELET VOLUME 8.7 fL (7.2-11.7); RBC 4.44 Mil/uL (4.40-5.90); RED CELL DISTRIBUTION WIDTH 17.1 % (11.5-14.5); WHITE BLOOD COUNT 9.5 K/uL (4.8-10.8)
[2018-03-22 07:29] LABS: ALB/GLOB RATIO 0.9 (1.0-2.1); ALBUMIN 3.4 g/dL (3.5-5.0); CALCIUM 8.4 mg/dl (8.6-10.4); TROPONIN I 37.4 ng/mL (0.00-0.120)
[2018-03-22] MEDS: Magnesium Sulfate 1 gm in D5W 1 GM/100 ML BAG IVPB SCH ×2 (08:53→09:17)
[2018-03-22] MEDS: Aspirin 325 mg EC Tablets PO SCH (09:03)
[2018-03-22] MEDS: Acetylcysteine 20% Inhal Soln (4ml) PO SCH ×3 (09:03→22:12)
--- NOTE | 2018-03-22 10:12 | CP.PCM.CON ---
History of Present Illness - History of Present Illness History of Present Illness: pt is seen and examined, full consult is dictated #[id number] 1. HTN 2.ckd-3 3.nephrotic range proteinuria r/o ch Gn such as FSGS sec to obesity vs HTN nephrosclerosis 4. NSTEMI pt will have a mild- moderate risk for GWEN about 50% and the need for Hd is about 10-12 % pt was exaplained the risks and benefits, pt verbalized understanding c/w ivf 1/2 ns at 70 ml/hr c/w mucomyst 600 mg po q 12 hrs f/w bmp daily check hept.b,c serology, mansi, anca, c3,c4, upep,spep u/s kidneys for size, f/u 24 hr up,cr, cr cl Past Patient History - Past Medical History & Family History Past Medical History?: Yes - Past Social History Smoking Status: Never Smoked - CARDIAC Hx Hypertension: Yes - PULMONARY Hx Respiratory Disorders: No - NEUROLOGICAL Hx Neurological Disorder: No - HEENT Hx HEENT Problems: No Hx Cataracts: Yes - RENAL Hx Chronic Kidney Disease: No - ENDOCRINE/METABOLIC Hx Endocrine Disorders: Yes Hx Diabetes Mellitus Type 2: Yes - HEMATOLOGICAL/ONCOLOGICAL Hx Blood Disorders: No - INTEGUMENTARY Hx Dermatological Problems: No - MUSCULOSKELETAL/RHEUMATOLOGICAL Hx Falls: No - GASTROINTESTINAL Hx Gastrointestinal Disorders: No - GENITOURINARY/GYNECOLOGICAL Hx Genitourinary Disorders: No - PSYCHIATRIC Hx Substance Use: No - SURGICAL HISTORY Hx Surgeries: Yes Hx Herniorrhaphy: Yes Other/Comment: prostate sx - ANESTHESIA Hx Anesthesia: Yes Hx Anesthesia Reactions: No Hx Malignant Hyperthermia: No Has any member of the family had a problem w/ anesthesia?: No Meds Allergies/Adverse Reactions: Allergies Allergy/AdvReac Type Severity Reaction Status Date / Time No Known Allergies Allergy Verified 03/21/18 01:04 - Medications Medications: Current Medications Acetylcysteine (Acetylcysteine 20%) 8 ml PO Q12H [facility] Stop: 03/22/18 22:16 Last Admin: 03/22/18 09:52 Dose: Not Given Aspirin (Ecotrin) 325 mg PO DAILY [facility] Last Admin: 03/22/18 09:03 Dose: 325 mg Carvedilol (Coreg) 25 mg PO BID [facility] Last Admin: 03/22/18 09:03 Dose: Not Given Clopidogrel Bisulfate (Plavix) 75 mg PO DAILY [facility] Last Admin: 03/22/18 09:03 Dose: 75 mg Famotidine (Pepcid) 20 mg PO DAILY [facility] Last Admin: 03/22/18 09:02 Dose: 20 mg Furosemide (Lasix) 40 mg IVP DAILY [facility] Last Admin: 03/21/18 10:41 Dose: 40 mg Hydralazine HCl (Apresoline) 25 mg PO TID [facility] Last Admin: 03/22/18 09:03 Dose: Not Given Sodium Chloride (Sodium Chloride 0.45%) 1,000 mls @ 70 mls/hr IV .[id number] [facility] Stop: 03/22/18 23:59 Last Admin: 03/22/18 00:00 Dose: 70 mls/hr Heparin Sodium/Sodium Chloride (Heparin 04191 Units/250ml 1/2 Normal Saline) 25 ,000 units in 250 mls @ 16.765 mls/hr IV .[id number] PRN; Protocol; 11 UNITS/KG/HR PRN Reason: ADJUST RATE PER PROTOCOL Last Admin: 03/22/18 06:37 Dose: 11 units/kg/hr, 16.765 mls/hr Rosuvastatin Calcium (Crestor) 10 mg PO HS [facility] Last Admin: 03/21/18 22:45 Dose: 10 mg Results - Vital Signs Recent Vital Signs: Last Vital Signs Temp 98.4 F 03/22/18 08:00 Pulse 73 03/22/18 10:00 Resp 16 03/22/18 10:00 BP 134/73 03/22/18 09:57 Pulse Ox 98 03/22/18 10:00 - Labs Result Diagrams: 03/22/18 06:32 03/22/18 05:22 Labs: Laboratory Results - last 24 hr 03/21/18 03/21/18 03/21/18 11:16 11:16 15:20 WBC RBC Hgb Hct MCV MCH MCHC RDW Plt Count MPV Neut % (Auto) Lymph % (Auto) [place] % (Auto) Eos % (Auto) Baso % (Auto) Neut # (Auto) Lymph # (Auto) [place] # (Auto) Eos # (Auto) Baso # (Auto) APTT 152 H* D Sodium Potassium Chloride Carbon Dioxide Anion Gap BUN Creatinine Est GFR ( Amer) Est GFR (Non-Af Amer) Random Glucose Hemoglobin A1c 5.4 Calcium Phosphorus Magnesium 1.6 Total Bilirubin AST ALT Alkaline Phosphatase Troponin I 80.0000 H* Total Protein Albumin Globulin Albumin/Globulin Ratio Urine Collection Time Urine Total Volume Ur Protein 24 Hr Calc 03/21/18 03/21/18 03/22/18 17:08 23:45 05:22 WBC 10.5 RBC 4.72 Hgb 12.7 D Hct 38.0 MCV 80.5 MCH 26.8 L MCHC 33.3 RDW 17.2 H Plt Count 194 MPV 8.9 Neut % (Auto) 74.9 Lymph % (Auto) 14.3 L [place] % (Auto) 9.2 Eos % (Auto) 1.0 Baso % (Auto) 0.6 Neut # (Auto) 7.9 H Lymph # (Auto) 1.5 [place] # (Auto) 1.0 H Eos # (Auto) 0.1 Baso # (Auto) 0.1 APTT 50 H D Sodium Potassium Chloride Carbon Dioxide Anion Gap BUN Creatinine Est GFR ( Amer) Est GFR (Non-Af Amer) Random Glucose Hemoglobin A1c Calcium Phosphorus Magnesium Total Bilirubin AST ALT Alkaline Phosphatase Troponin I 72.2000 H* Total Protein Albumin Globulin Albumin/Globulin Ratio Urine Collection Time Urine Total Volume Ur Protein 24 Hr Calc 03/22/18 03/22/18 03/22/18 05:22 05:22 06:32 WBC 9.5 RBC 4.44 Hgb 11.9 L Hct 35.7 MCV 80.4 MCH 26.7 L MCHC 33.3 RDW 17.1 H Plt Count 198 MPV 8.7 Neut % (Auto) Lymph % (Auto) [place] % (Auto) Eos % (Auto) Baso % (Auto) Neut # (Auto) Lymph # (Auto) [place] # (Auto) Eos # (Auto) Baso # (Auto) APTT 38 H D Sodium 138 Potassium 3.4 L Chloride 102 Carbon Dioxide 25 Anion Gap 14 BUN 30 H Creatinine 1.8 H Est GFR ( Amer) 51 Est GFR (Non-Af Amer) 42 Random Glucose 108 Hemoglobin A1c Calcium 8.4 L Phosphorus 4.2 Magnesium 1.7 Total Bilirubin 0.7 AST 162 H D ALT 76 H Alkaline Phosphatase 107 Troponin I 37.4000 H* Total Protein 7.1 Albumin 3.4 L D Globulin 3.7 Albumin/Globulin Ratio 0.9 L Urine Collection Time Urine Total Volume Ur Protein 24 Hr Calc 03/22/18 08:24 WBC RBC Hgb Hct MCV MCH MCHC RDW Plt Count MPV Neut % (Auto) Lymph % (Auto) [place] % (Auto) Eos % (Auto) Baso % (Auto) Neut # (Auto) Lymph # (Auto) [place] # (Auto) Eos # (Auto) Baso # (Auto) APTT Sodium Potassium Chloride Carbon Dioxide Anion Gap BUN Creatinine Est GFR ( Amer) Est GFR (Non-Af Amer) Random Glucose Hemoglobin A1c Calcium Phosphorus Magnesium Total Bilirubin AST ALT Alkaline Phosphatase Troponin I Total Protein Albumin Globulin Albumin/Globulin Ratio Urine Collection Time 24 Urine Total Volume 2375 Ur Protein 24 Hr Calc 1615.0 H
[2018-03-22] MEDS ORDERED: Iodixanol 320 MG/ML 200 ML BOTTLE IV ONE (10:18)
[2018-03-22] MEDS ORDERED: Nitroglycerin 50mg in D5W 50 MG/250 ML BOTTLE IV ONE (10:18)
[2018-03-22] MEDS ORDERED: Midazolam 2 MG/2 ML VIAL ONE (10:47)
[2018-03-22] MEDS ORDERED: Verapamil 2 ML ONE (10:51)
[2018-03-22 11:08] LABS: COMPLEMENT C4 65.3 mg/dL (14.0-44.0)
[2018-03-22 11:41] LABS: HEPATITIS C ANTIBODY NEGATIVE (NEGATIVE)
--- NOTE | 2018-03-22 11:59 | CP.PCM.PN ---
Subjective - Date & Time of Evaluation Date of Evaluation: 03/22/18 Time of Evaluation: 11:55 - Subjective Subjective: Patient s/p Cath 1. 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 Genao for CABG EP consult with Dr. Penny for Life Vest D/C palvix Resume Heparin IV 2 hours after removal of radial band D/C IV fluids Follow BUN/Creatinine Objective - Vital Signs/Intake and Output Vital Signs (last 24 hours): Temp Pulse Resp BP Pulse Ox 98.4 F 73 16 134/73 98 03/22/18 08:00 03/22/18 10:00 03/22/18 10:00 03/22/18 09:57 03/22/18 10:00 Intake and Output: 03/22/18 03/22/18 06:59 18:59 Intake Total 1001.1 320.1 Output Total 550 550 Balance 451.1 -229.9 - Medications Medications: Current Medications Acetylcysteine (Acetylcysteine 20%) 8 ml PO Q12H [facility] Stop: 03/22/18 22:16 Last Admin: 03/22/18 09:52 Dose: Not Given Aspirin (Ecotrin) 325 mg PO DAILY [facility] Last Admin: 03/22/18 09:03 Dose: 325 mg Carvedilol (Coreg) 25 mg PO BID [facility] Last Admin: 03/22/18 09:03 Dose: Not Given Clopidogrel Bisulfate (Plavix) 75 mg PO DAILY [facility] Last Admin: 03/22/18 09:03 Dose: 75 mg Famotidine (Pepcid) 20 mg PO DAILY [facility] Last Admin: 03/22/18 09:02 Dose: 20 mg Furosemide (Lasix) 40 mg IVP DAILY [facility] Last Admin: 03/21/18 10:41 Dose: 40 mg Hydralazine HCl (Apresoline) 25 mg PO TID [facility] Last Admin: 03/22/18 09:03 Dose: Not Given Sodium Chloride (Sodium Chloride 0.45%) 1,000 mls @ 70 mls/hr IV .[id number] [facility] Stop: 03/22/18 23:59 Last Admin: 03/22/18 00:00 Dose: 70 mls/hr Heparin Sodium/Sodium Chloride (Heparin 01428 Units/250ml 1/2 Normal Saline) 25 ,000 units in 250 mls @ 16.765 mls/hr IV .[id number] PRN; Protocol; 11 UNITS/KG/HR PRN Reason: ADJUST RATE PER PROTOCOL Last Admin: 03/22/18 06:37 Dose: 11 units/kg/hr, 16.765 mls/hr Rosuvastatin Calcium (Crestor) 10 mg PO HS [facility] Last Admin: 03/21/18 22:45 Dose: 10 mg - Labs Labs: 03/22/18 06:32 03/22/18 05:22 PT 12.4 SECONDS (9.7-12.2) H 03/21/18 01:23 INR 1.1 03/21/18 01:23 APTT 38 SECONDS (21-34) H D 03/22/18 05:22
[2018-03-22 12:11] LABS: HEPATITIS B SURFACE AG Negative (NEGATIVE)
[2018-03-22 12:17] LABS: HEPATITIS A IGM NEGATIVE (NEGATIVE); HEPATITIS B CORE AB NEGATIVE (NEGATIVE)
--- NOTE | 2018-03-22 13:34 | CP.CCUPN ---
CCU Subjective - Physician Review Events Since Last Encounter (Free Text): 03/22/18 13:33 Patient is a 42-year-old male with a history of hypertension noncompensatory medication admitted to the hospital with a non-ST elevation [place]. Patient also had impending heart failure. Now having no chest pain. Seen by geospatial engineer. Underwent angiogram today. Critical Care Time Spent (in minutes): 45 CCU Objective - Vital Signs / Intake & Output Vital Signs (Last 4 hours): Vital Signs Temp Pulse Resp BP Pulse Ox 03/22/18 13:29 139/78 03/22/18 13:15 87 18 139/78 03/22/18 13:00 80 23 100 03/22/18 12:50 81 19 98 03/22/18 12:46 82 18 149/94 H 97 03/22/18 12:45 81 15 149/94 H 03/22/18 12:40 80 22 99 03/22/18 12:34 80 18 150/90 99 03/22/18 12:30 80 17 150/90 98 03/22/18 12:20 74 20 98 03/22/18 12:15 74 18 138/88 98 03/22/18 12:10 73 18 98 03/22/18 12:00 98.5 F 74 18 97 03/22/18 11:57 98.5 F 74 19 139/87 97 03/22/18 11:56 76 21 141/89 97 03/22/18 11:55 83 13 03/22/18 10:10 71 18 97 03/22/18 10:00 73 16 98 03/22/18 09:57 74 19 134/73 98 03/22/18 09:50 71 19 98 03/22/18 09:40 80 20 97 Intake and Output (Last 8hrs): Intake & Output 03/21/18 03/22/18 03/22/18 22:59 06:59 14:59 Intake Total 460.4 946.3 470.1 Output Total 1200 550 550 Balance -739.6 396.3 -79.9 Weight 341 lb Intake: IV 120 130 Intake, IV Amount 100.4 616.3 260.1 Right Antecubital 100.4 27.4 Right Hand 98.9 50.1 Right Hand 2 490 210 Oral 240 200 210 Output: Urine 1200 550 550 Urine, Voided 1200 550 550 - Physical Exam Narrative Physical Exam (Free Text): 03/22/18 13:33 On examination: Obeys Chest good air entry Regular heart sounds Nontender abdomen Extremity is no pedal edema [place] alert awake oriented 3 no functional neurological deficit Labs reviewed in Elevated troponin noted Labs reviewed Medications reviewed Spoke to the geospatial engineer - Medications Active Medications: Active Medications Generic Name Dose Route Start Last Admin Trade Name Freq PRN Reason Stop Dose Admin Acetylcysteine 8 ml 03/21/18 10:15 03/22/18 09:52 Acetylcysteine 20% PO 03/22/18 22:16 Not Given Q12H RORO Aspirin 325 mg 03/22/18 10:00 03/22/18 09:03 Ecotrin PO 325 mg DAILY RORO Administration Carvedilol 25 mg 03/21/18 10:00 03/22/18 09:03 Coreg PO Not Given BID RORO Famotidine 20 mg 03/21/18 10:00 03/22/18 09:02 Pepcid PO 20 mg DAILY RORO Administration Furosemide 40 mg 03/21/18 10:00 03/22/18 13:29 Lasix IVP 40 mg DAILY RORO Administration Hydralazine HCl 25 mg 03/21/18 14:00 03/22/18 09:03 Apresoline PO Not Given TID RORO Heparin Sodium/Sodium Chloride 25,000 units in 250 mls @ 16.765 mls/hr 06:11 03/22/18 06:37 Heparin 70136 Units/250ml 1/2 Normal Saline IV 11 units/kg/hr .[id number] PRN 16.765 mls/hr ADJUST RATE PER PROTOCOL Administration Protocol 11 UNITS/KG/HR Rosuvastatin Calcium 10 mg 03/21/18 22:00 03/21/18 22:45 Crestor PO 10 mg HS RORO Administration - Patient Studies Lab Studies: Lab Studies 03/22/18 03/22/18 03/22/18 Range/Units 10:17 10:17 08:24 WBC (4.8-10.8) K/uL RBC (4.40-5.90) Mil/uL Hgb (12.0-18.0) g/dL Hct (35.0-51.0) % MCV (80.0-94.0) fL MCH (27.0-31.0) pg MCHC (33.0-37.0) g/dL RDW (11.5-14.5) % Plt Count (130-400) K/uL MPV (7.2-11.7) fL Neut % (Auto) (50.0-75.0) % Lymph % (Auto) (20.0-40.0) % [place] % (Auto) (0.0-10.0) % Eos % (Auto) (0.0-4.0) % Baso % (Auto) (0.0-2.0) % Neut # (Auto) (1.8-7.0) K/uL Lymph # (Auto) (1.0-4.3) K/uL [place] # (Auto) (0.0-0.8) K/uL Eos # (Auto) (0.0-0.7) K/uL Baso # (Auto) (0.0-0.2) K/uL APTT (21-34) SECONDS Sodium (132-148) mmol/L Potassium (3.6-5.2) mmol/L Chloride (98-107) mmol/L Carbon Dioxide (22-30) mmol/L Anion Gap (10-20) BUN (9-20) mg/dL Creatinine (0.8-1.5) mg/dL Est GFR ( Amer) Est GFR (Non-Af Amer) Random Glucose (75-110) mg/dL Calcium (8.6-10.4) mg/dl Phosphorus (2.5-4.5) mg/dL Magnesium (1.6-2.3) mg/dL Total Bilirubin (0.2-1.3) mg/dL AST (17-59) U/L ALT (21-72) U/L Alkaline Phosphatase (38-126) U/L Troponin I (0.00-0.120) ng/mL Total Protein (6.3-8.3) g/dL Albumin (3.5-5.0) g/dL Globulin (2.2-3.9) gm/dL Albumin/Globulin Ratio (1.0-2.1) Urine Collection Time 24 HRS Urine Total Volume 2375 mL Ur Protein 24 Hr Calc 1615.0 H (42-225) mg/24hr Complement C3 127.0 (88.0-165.0) mg/dL Complement C4 65.3 H (14.0-44.0) mg/dL Hepatitis A IgM Ab Negative (NEGATIVE) Hep Bs Antigen Negative (NEGATIVE) Hep B Core IgM Ab Negative (NEGATIVE) Hepatitis C Antibody Negative (NEGATIVE) 03/22/18 03/22/18 03/22/18 Range/Units 06:32 05:22 05:22 WBC 9.5 (4.8-10.8) K/uL RBC 4.44 (4.40-5.90) Mil/uL Hgb 11.9 L (12.0-18.0) g/dL Hct 35.7 (35.0-51.0) % MCV 80.4 (80.0-94.0) fL MCH 26.7 L (27.0-31.0) pg MCHC 33.3 (33.0-37.0) g/dL RDW 17.1 H (11.5-14.5) % Plt Count 198 (130-400) K/uL MPV 8.7 (7.2-11.7) fL Neut % (Auto) (50.0-75.0) % Lymph % (Auto) (20.0-40.0) % [place] % (Auto) (0.0-10.0) % Eos % (Auto) (0.0-4.0) % Baso % (Auto) (0.0-2.0) % Neut # (Auto) (1.8-7.0) K/uL Lymph # (Auto) (1.0-4.3) K/uL [place] # (Auto) (0.0-0.8) K/uL Eos # (Auto) (0.0-0.7) K/uL Baso # (Auto) (0.0-0.2) K/uL APTT 38 H D (21-34) SECONDS Sodium 138 (132-148) mmol/L Potassium 3.4 L (3.6-5.2) mmol/L Chloride 102 (98-107) mmol/L Carbon Dioxide 25 (22-30) mmol/L Anion Gap 14 (10-20) BUN 30 H (9-20) mg/dL Creatinine 1.8 H (0.8-1.5) mg/dL Est GFR ( Amer) 51 Est GFR (Non-Af Amer) 42 Random Glucose 108 (75-110) mg/dL Calcium 8.4 L (8.6-10.4) mg/dl Phosphorus 4.2 (2.5-4.5) mg/dL Magnesium 1.7 (1.6-2.3) mg/dL Total Bilirubin 0.7 (0.2-1.3) mg/dL AST 162 H D (17-59) U/L ALT 76 H (21-72) U/L Alkaline Phosphatase 107 (38-126) U/L Troponin I 37.4000 H* (0.00-0.120) ng/mL Total Protein 7.1 (6.3-8.3) g/dL Albumin 3.4 L D (3.5-5.0) g/dL Globulin 3.7 (2.2-3.9) gm/dL Albumin/Globulin Ratio 0.9 L (1.0-2.1) Urine Collection Time HRS Urine Total Volume mL Ur Protein 24 Hr Calc (42-225) mg/24hr Complement C3 (88.0-165.0) mg/dL Complement C4 (14.0-44.0) mg/dL Hepatitis A IgM Ab (NEGATIVE) Hep Bs Antigen (NEGATIVE) Hep B Core IgM Ab (NEGATIVE) Hepatitis C Antibody (NEGATIVE) 03/22/18 03/21/18 03/21/18 Range/Units 05:22 23:45 17:08 WBC 10.5 (4.8-10.8) K/uL RBC 4.72 (4.40-5.90) Mil/uL Hgb 12.7 D (12.0-18.0) g/dL Hct 38.0 (35.0-51.0) % MCV 80.5 (80.0-94.0) fL MCH 26.8 L (27.0-31.0) pg MCHC 33.3 (33.0-37.0) g/dL RDW 17.2 H (11.5-14.5) % Plt Count 194 (130-400) K/uL MPV 8.9 (7.2-11.7) fL Neut % (Auto) 74.9 (50.0-75.0) % Lymph % (Auto) 14.3 L (20.0-40.0) % [place] % (Auto) 9.2 (0.0-10.0) % Eos % (Auto) 1.0 (0.0-4.0) % Baso % (Auto) 0.6 (0.0-2.0) % Neut # (Auto) 7.9 H (1.8-7.0) K/uL Lymph # (Auto) 1.5 (1.0-4.3) K/uL [place] # (Auto) 1.0 H (0.0-0.8) K/uL Eos # (Auto) 0.1 (0.0-0.7) K/uL Baso # (Auto) 0.1 (0.0-0.2) K/uL APTT 50 H D (21-34) SECONDS Sodium (132-148) mmol/L Potassium (3.6-5.2) mmol/L Chloride (98-107) mmol/L Carbon Dioxide (22-30) mmol/L Anion Gap (10-20) BUN (9-20) mg/dL Creatinine (0.8-1.5) mg/dL Est GFR ( Amer) Est GFR (Non-Af Amer) Random Glucose (75-110) mg/dL Calcium (8.6-10.4) mg/dl Phosphorus (2.5-4.5) mg/dL Magnesium (1.6-2.3) mg/dL Total Bilirubin (0.2-1.3) mg/dL AST (17-59) U/L ALT (21-72) U/L Alkaline Phosphatase (38-126) U/L Troponin I 72.2000 H* (0.00-0.120) ng/mL Total Protein (6.3-8.3) g/dL Albumin (3.5-5.0) g/dL Globulin (2.2-3.9) gm/dL Albumin/Globulin Ratio (1.0-2.1) Urine Collection Time HRS Urine Total Volume mL Ur Protein 24 Hr Calc (42-225) mg/24hr Complement C3 (88.0-165.0) mg/dL Complement C4 (14.0-44.0) mg/dL Hepatitis A IgM Ab (NEGATIVE) Hep Bs Antigen (NEGATIVE) Hep B Core IgM Ab (NEGATIVE) Hepatitis C Antibody (NEGATIVE) 03/21/18 Range/Units 15:20 WBC (4.8-10.8) K/uL RBC (4.40-5.90) Mil/uL Hgb (12.0-18.0) g/dL Hct (35.0-51.0) % MCV (80.0-94.0) fL MCH (27.0-31.0) pg MCHC (33.0-37.0) g/dL RDW (11.5-14.5) % Plt Count (130-400) K/uL MPV (7.2-11.7) fL Neut % (Auto) (50.0-75.0) % Lymph % (Auto) (20.0-40.0) % [place] % (Auto) (0.0-10.0) % Eos % (Auto) (0.0-4.0) % Baso % (Auto) (0.0-2.0) % Neut # (Auto) (1.8-7.0) K/uL Lymph # (Auto) (1.0-4.3) K/uL [place] # (Auto) (0.0-0.8) K/uL Eos # (Auto) (0.0-0.7) K/uL Baso # (Auto) (0.0-0.2) K/uL APTT 152 H* D (21-34) SECONDS Sodium (132-148) mmol/L Potassium (3.6-5.2) mmol/L Chloride (98-107) mmol/L Carbon Dioxide (22-30) mmol/L Anion Gap (10-20) BUN (9-20) mg/dL Creatinine (0.8-1.5) mg/dL Est GFR ( Amer) Est GFR (Non-Af Amer) Random Glucose (75-110) mg/dL Calcium (8.6-10.4) mg/dl Phosphorus (2.5-4.5) mg/dL Magnesium (1.6-2.3) mg/dL Total Bilirubin (0.2-1.3) mg/dL AST (17-59) U/L ALT (21-72) U/L Alkaline Phosphatase (38-126) U/L Troponin I (0.00-0.120) ng/mL Total Protein (6.3-8.3) g/dL Albumin (3.5-5.0) g/dL Globulin (2.2-3.9) gm/dL Albumin/Globulin Ratio (1.0-2.1) Urine Collection Time HRS Urine Total Volume mL Ur Protein 24 Hr Calc (42-225) mg/24hr Complement C3 (88.0-165.0) mg/dL Complement C4 (14.0-44.0) mg/dL Hepatitis A IgM Ab (NEGATIVE) Hep Bs Antigen (NEGATIVE) Hep B Core IgM Ab (NEGATIVE) Hepatitis C Antibody (NEGATIVE) Laboratory Results - last 24 hr 03/21/18 03/21/18 03/21/18 15:20 17:08 23:45 WBC RBC Hgb Hct MCV MCH MCHC RDW Plt Count MPV Neut % (Auto) Lymph % (Auto) [place] % (Auto) Eos % (Auto) Baso % (Auto) Neut # (Auto) Lymph # (Auto) [place] # (Auto) Eos # (Auto) Baso # (Auto) APTT 152 H* D 50 H D Sodium Potassium Chloride Carbon Dioxide Anion Gap BUN Creatinine Est GFR ( Amer) Est GFR (Non-Af Amer) Random Glucose Calcium Phosphorus Magnesium Total Bilirubin AST ALT Alkaline Phosphatase Troponin I 72.2000 H* Total Protein Albumin Globulin Albumin/Globulin Ratio Urine Collection Time Urine Total Volume Ur Protein 24 Hr Calc Complement C3 Complement C4 Hepatitis A IgM Ab Hep Bs Antigen Hep B Core IgM Ab Hepatitis C Antibody 03/22/18 03/22/18 03/22/18 05:22 05:22 05:22 WBC 10.5 RBC 4.72 Hgb 12.7 D Hct 38.0 MCV 80.5 MCH 26.8 L MCHC 33.3 RDW 17.2 H Plt Count 194 MPV 8.9 Neut % (Auto) 74.9 Lymph % (Auto) 14.3 L [place] % (Auto) 9.2 Eos % (Auto) 1.0 Baso % (Auto) 0.6 Neut # (Auto) 7.9 H Lymph # (Auto) 1.5 [place] # (Auto) 1.0 H Eos # (Auto) 0.1 Baso # (Auto) 0.1 APTT 38 H D Sodium 138 Potassium 3.4 L Chloride 102 Carbon Dioxide 25 Anion Gap 14 BUN 30 H Creatinine 1.8 H Est GFR ( Amer) 51 Est GFR (Non-Af Amer) 42 Random Glucose 108 Calcium 8.4 L Phosphorus 4.2 Magnesium 1.7 Total Bilirubin 0.7 AST 162 H D ALT 76 H Alkaline Phosphatase 107 Troponin I 37.4000 H* Total Protein 7.1 Albumin 3.4 L D Globulin 3.7 Albumin/Globulin Ratio 0.9 L Urine Collection Time Urine Total Volume Ur Protein 24 Hr Calc Complement C3 Complement C4 Hepatitis A IgM Ab Hep Bs Antigen Hep B Core IgM Ab Hepatitis C Antibody 03/22/18 03/22/18 03/22/18 06:32 08:24 10:17 WBC 9.5 RBC 4.44 Hgb 11.9 L Hct 35.7 MCV 80.4 MCH 26.7 L MCHC 33.3 RDW 17.1 H Plt Count 198 MPV 8.7 Neut % (Auto) Lymph % (Auto) [place] % (Auto) Eos % (Auto) Baso % (Auto) Neut # (Auto) Lymph # (Auto) [place] # (Auto) Eos # (Auto) Baso # (Auto) APTT Sodium Potassium Chloride Carbon Dioxide Anion Gap BUN Creatinine Est GFR ( Amer) Est GFR (Non-Af Amer) Random Glucose Calcium Phosphorus Magnesium Total Bilirubin AST ALT Alkaline Phosphatase Troponin I Total Protein Albumin Globulin Albumin/Globulin Ratio Urine Collection Time 24 Urine Total Volume 2375 Ur Protein 24 Hr Calc 1615.0 H Complement C3 Complement C4 Hepatitis A IgM Ab Negative Hep Bs Antigen Negative Hep B Core IgM Ab Negative Hepatitis C Antibody Negative 03/22/18 10:17 WBC RBC Hgb Hct MCV MCH MCHC RDW Plt Count MPV Neut % (Auto) Lymph % (Auto) [place] % (Auto) Eos % (Auto) Baso % (Auto) Neut # (Auto) Lymph # (Auto) [place] # (Auto) Eos # (Auto) Baso # (Auto) APTT Sodium Potassium Chloride Carbon Dioxide Anion Gap BUN Creatinine Est GFR ( Amer) Est GFR (Non-Af Amer) Random Glucose Calcium Phosphorus Magnesium Total Bilirubin AST ALT Alkaline Phosphatase Troponin I Total Protein Albumin Globulin Albumin/Globulin Ratio Urine Collection Time Urine Total Volume Ur Protein 24 Hr Calc Complement C3 127.0 Complement C4 65.3 H Hepatitis A IgM Ab Hep Bs Antigen Hep B Core IgM Ab Hepatitis C Antibody Review of Systems - Review of Systems All systems: reviewed and no additional remarkable complaints except Critical Care Progress Note - Nutrition Nutrition: Nutrition Category Date Time Status Heart Healthy Diet [DIET] Diets 03/22/18 Lunch Active Assessment/Plan (1) Acute [place] Assessment and plan: Patient is a 42-year-old male admitted with acute non-ST elevation [place]. Heart failure. He underwent angiogram today, showing evidence of triple vessel disease. Associated with low ejection fraction. Possible heart failure associated with heart disease. Patient will need open heart surgery. Acute renal insufficiency. Patient will possibly transfer to tertiary center Current Visit: Yes Status: Acute (2) Renal insufficiency Current Visit: Yes Status: Acute
--- NOTE | 2018-03-22 20:06 | US ---
EXAM: US Retroperitoneal Limited, Renal CLINICAL HISTORY: 42 years old, male; Condition or disease; Kidney or ureter condition; Other: Renal failure; Additional info: HTN, renal failure, proteinuria, ami TECHNIQUE: Real-time ultrasound of the retroperitoneum (limited) with image documentation. COMPARISON: No relevant prior studies available. FINDINGS: Limitations: Portable technique. Body habitus. Aorta: Unremarkable as visualized. Right kidney: Normal echogenicity. No mass. No calculi. No hydronephrosis. Left kidney: Normal echogenicity. 2.8 x 2.3 x 3.4 cm cyst. No calculi. No hydronephrosis. Bladder: Unremarkable. IMPRESSION: 1.No acute findings. 2.Non-acute findings are described above.
--- NOTE | 2018-03-22 21:25 | CON ---
DATE: 03/22/2018 LOCATION: The patient is located in ICU, bed 9. REQUESTED BY: Dr. Wes Garcia and Dr. Marco Cabrera. REASON FOR CONSULTATION: Increased BUN and creatinine, proteinuria, acute UT, for evaluation of contrast-induced nephropathy risk evaluation. HISTORY OF PRESENT ILLNESS: Mr. 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 The patient is slightly better now. Denies any chest pain at this time. Denies any shortness of breath. The patient was complaining of shortness of breath on admission. No nausea. No vomiting or diarrhea. No fever. No cough. No dysuria. Again, no swelling of the legs. PAST MEDICAL HISTORY: Significant for hypertension for 5 years. Denies any hyperlipidemia. Denies any diabetes. Denies any CAD or CVA in the past. Denies any surgical history. ALLERGIES: NO KNOWN DRUG ALLERGIES. SOCIAL HISTORY: The patient was an ex-smoker. Smoked from 18 to 31 for about 10 to 12 years. The patient drinks alcohol and last use while on the day of admission. No drug abuse. PERSONAL HISTORY: He has a partner and he has one . Mother and father is alive. He has 4 brothers and 1 sister. FAMILY HISTORY: Not significant. CURRENT MEDICATIONS: Include as follows: Mucomyst 20%, 80 mL p.o. every 12 hours, hydralazine 25 mg p.o. t.i.d., Coreg 25 mg p.o. b.i.d., Crestor 10 mg at bedtime, Ecotrin 325 mg daily, heparin 25,000 units in 250 mL at 16.7 mL per hour, Lasix 40 mg IV daily, Pepcid 20 mg p.o. daily, Plavix 75 mg daily, IV fluids half normal saline at 70 mL per hour. REVIEW OF SYSTEMS: Significant for chest pain on admission. All other review of systems reviewed and negative. Also found to have an acute UT and NSTEMI. PHYSICAL EXAMINATION: VITAL SIGNS: Blood pressure this morning 134/73, pulse 74, respirations 19, saturations 98%, temperature is 98.4. Height is 5 feet 8 inches, and weight is 341 pounds. GENERAL: Mr. Keys is a 42-year-old obese male, from [facility], well-built, well-nourished, not in distress. HEENT: Pupils normal and reactive to light and accommodation. Conjunctivae pink. Sclerae anicteric. Tongue is moist. Trachea is midline. LUNGS: Symmetric on both sides. Bilateral breath sounds present. No crackles at this time. CVS: [place] at the fifth intercostal space, midclavicular line. S1 and S2 audible. No murmur or gallop. ABDOMEN: Normal in appearance. Protuberant, soft, tympanic. No guarding. No rigidity. No hepatosplenomegaly. 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 Nonfocal neuro examination. Cranial nerves II through XII grossly intact. Sensory and motor system within normal limits. EXTREMITIES: No cyanosis, no clubbing, no edema. LABORATORY DATA: As of 03/21/2018; WBC 10.8, hemoglobin 15.3, hematocrit is 45.8, platelets 245. PT 12.4, PTT 36, D-dimer 244. Sodium 144, potassium 3.1, chloride 107, CO2 of 27, BUN 24, creatinine 1.1, glucose 156, calcium 9.2. total bili 0.7, AST 43, ALT 77, alkaline phosphatase is 147. CPK is 88 and CK-MB 3.71 and second one is 71.1. Troponin level 0.37 first one, second one is 10.9, third one is 80, and the fourth one is 72.2. Total protein 8.7, albumin is 4.3. Urinalysis: Straw color, clear, pH 6, specific gravity 1.010, protein 3+, glucose 1+, ketone negative, blood negative, nitrite negative, bilirubin negative, urobilinogen normal, leukocyte esterase negative, wbc 3, rbc 1. Urine toxic screen was negative. Chest x-ray as of 03/21/2018, chest x-ray considered active CHF versus interstitial pneumonia. As of 03/21/2018, at 6 a.m., chest x-ray repeat, mild pulmonary vascular congestion appreciated, not simply changed in interval and no definite infiltrate or pleural effusion identified bilaterally. ASSESSMENT: In summary, Mr. Keys is a 42-year-old middle-aged obese, male with a history of hypertension for about 5 years, who was admitted with a chest pain the night before and came in with worsening symptoms cyber incident handler yesterday and found to have elevated troponin level and also found to have increased BUN and creatinine, and proteinuria. 1. [id number] myocardial infarction. 2. Hypertension. 3. Chronic kidney disease, stage 3. 4. Proteinuria, nephrotic range, rule out chronic glomerulonephritis such as focal segmental glomerulonephritis secondary to obesity, rule out hypertensive nephrosclerosis. The patient will have mild to moderate risk for contrast induced nephropathy, and risk for contrast induced nephropathy is about 50%, and need for dialysis is about 10% to 12%. Discussed with the patient regarding the risks and benefits. The patient understands and verbalizes. We will check 24-hour urine protein-creatinine clearance, ultrasound of the kidney. We will check hepatitis B and C serology, JULISA, C3, C4 and ANCA, UPEP, SPEP, and check echocardiogram for left ventricular function. Case discussed with Dr. Marco Cabrera in rounds. Continue to monitor BMP daily. Thank you for allowing me to participate in your patient's care. Joyce Iverson MD
--- NOTE | 2018-03-22 21:38 | CARDCATH ---
PROCEDURE DATE: 03/22/2018 PROCEDURES: 1. Left heart catheterization. 2. Coronary angiogram. CLINICAL INDICATIONS: 1. Chest pain. 2. Non-ST elevation myocardial infarction. 3. Acute systolic congestive heart failure. 4. Chronic kidney disease. 5. Hypertension. REFERRING PHYSICIAN: Wes Garcia MD PERFORMING PHYSICIAN: Marco Cabrera MD BRIEF CLINICAL HISTORY: Silviano Keys is a 42-year-old gentleman with history of hypertension, noncompliant with medication, admitted to [facility] for acute non-ST elevation myocardial infarction, acute congestive failure. Peak troponin was 70. The patient was started on anticoagulation. Today, the patient is brought to the director of cardiac cath lab for coronary angiogram. The patient also has chronic kidney disease with creatinine of 1.9. Renal consult was obtained. The patient was explained about the risk of contrast nephropathy. The patient agreed and signed the consent. DESCRIPTION OF PROCEDURE: After informed consent, the patient was prepped and draped in the usual sterile fashion. Lidocaine 2% was given in the right wrist for local anesthesia. Using micropuncture technique, 6-Hebrew sheath was introduced into right radial artery. JR4 diagnostic catheter inserted into the left ventricle. LV end diastolic pressure measured. Contrast injected and LV angiogram was done. The catheter was pulled back. Gradient across the aortic valve was measured. JR4 diagnostic catheter engaged into right coronary artery. Contrast injected and right coronary angiogram was performed. It was difficult to cannulate left coronary artery, however, with XB 3.5, 6-Hebrew guide catheter, I was able to engage left main coronary artery. Contrast injected and left coronary angiogram was done. The patient tolerated the procedure well. Postprocedure, Terumo radial band applied to right wrist for hemostasis. FINDINGS: 1. Left main coronary artery is patent. 2. Proximal LAD is patent. 3. Mid LAD has a 95% stenosis. 4. Distal LAD is patent. 5. D1, D2 branches have ostial 80% lesions. 6. Left circumflex is patent, however, large obtuse marginal artery has a discrete 90% lesion. 7. Right coronary artery is 100% occluded distally. Proximal artery has a 95% stenosis. 8. LV ejection fraction is approximately 20%. 9. Severely dilated ischemic cardiomyopathy. 10. EF is approximately 20%. EDP is 32. No gradient across the aortic valve. IMPRESSION: 1. Severe triple vessel coronary artery disease. 2. Ischemic dilated cardiomyopathy with poor left ventricular function. 3. Estimated EF is 20%. RECOMMENDATIONS: Recommend coronary artery bypass grafting. Marco Cabrera MD MTD[facility]
--- NOTE | 2018-03-22 22:34 | CP.PCM.HP ---
History of Present Illness - History of Present Illness History of Present Illness: 42 M with h/o long time HTN, not taking medications as he felt fine for years, obese around 10 pm last night c/o sob, and some chest pain, sob got worse, breathing became shallow and fast and hence he came to ER. In ER BP was 240/160 range, SOB, hr in 130's, CXR showed interstitial edema. EKG initial read as anterior st elevations, but not clearly visible on er assessment, repeat EKG showed LVH with strain pattern. Initial labs showed creat 1.9, trop 0.4. Patient was given NTG paste, iv metoprolol, lasix, in ER and felt significantly better, bp 199/130 hr in 90's, RR 18/min, patient talking calmly, no distress. Denies orthopnea/pnd, had 1 lesser episode a wk ago. 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 Past Patient History - Past Medical History & Family History Past Medical History?: Yes - Past Social History Smoking Status: Never Smoked - CARDIAC Hx Hypertension: Yes - PULMONARY Hx Respiratory Disorders: No - NEUROLOGICAL Hx Neurological Disorder: No - HEENT Hx HEENT Problems: No Hx Cataracts: Yes - RENAL Hx Chronic Kidney Disease: No - ENDOCRINE/METABOLIC Hx Endocrine Disorders: Yes Hx Diabetes Mellitus Type 2: Yes - HEMATOLOGICAL/ONCOLOGICAL Hx Blood Disorders: No - INTEGUMENTARY Hx Dermatological Problems: No - MUSCULOSKELETAL/RHEUMATOLOGICAL Hx Falls: No - GASTROINTESTINAL Hx Gastrointestinal Disorders: No - GENITOURINARY/GYNECOLOGICAL Hx Genitourinary Disorders: No - PSYCHIATRIC Hx Substance Use: No - SURGICAL HISTORY Hx Surgeries: Yes Hx Herniorrhaphy: Yes Other/Comment: prostate sx - ANESTHESIA Hx Anesthesia: Yes Hx Anesthesia Reactions: No Hx Malignant Hyperthermia: No Has any member of the family had a problem w/ anesthesia?: No Meds Allergies/Adverse Reactions: Allergies Allergy/AdvReac Type Severity Reaction Status Date / Time No Known Allergies Allergy Verified 03/21/18 01:04 Results - Vital Signs Recent Vital Signs: Last Vital Signs Temp 98.8 F 03/22/18 20:00 Pulse 76 03/22/18 22:00 Resp 25 H 03/22/18 22:00 BP 115/52 L 03/22/18 21:57 Pulse Ox 97 03/22/18 22:00 - Labs Result Diagrams: 03/22/18 06:32 03/22/18 05:22 Labs: Laboratory Results - last 24 hr 03/21/18 03/22/18 03/22/18 23:45 05:22 05:22 WBC 10.5 RBC 4.72 Hgb 12.7 D Hct 38.0 MCV 80.5 MCH 26.8 L MCHC 33.3 RDW 17.2 H Plt Count 194 MPV 8.9 Neut % (Auto) 74.9 Lymph % (Auto) 14.3 L [place] % (Auto) 9.2 Eos % (Auto) 1.0 Baso % (Auto) 0.6 Neut # (Auto) 7.9 H Lymph # (Auto) 1.5 [place] # (Auto) 1.0 H Eos # (Auto) 0.1 Baso # (Auto) 0.1 APTT 50 H D Sodium 138 Potassium 3.4 L Chloride 102 Carbon Dioxide 25 Anion Gap 14 BUN 30 H Creatinine 1.8 H Est GFR ( Amer) 51 Est GFR (Non-Af Amer) 42 Random Glucose 108 Calcium 8.4 L Phosphorus 4.2 Magnesium 1.7 Total Bilirubin 0.7 AST 162 H D ALT 76 H Alkaline Phosphatase 107 Troponin I 37.4000 H* Total Protein 7.1 Albumin 3.4 L D Globulin 3.7 Albumin/Globulin Ratio 0.9 L Urine Collection Time Urine Total Volume Ur Protein 24 Hr Calc Complement C3 Complement C4 Hepatitis A IgM Ab Hep Bs Antigen Hep B Core IgM Ab Hepatitis C Antibody 03/22/18 03/22/18 03/22/18 05:22 06:32 08:24 WBC 9.5 RBC 4.44 Hgb 11.9 L Hct 35.7 MCV 80.4 MCH 26.7 L MCHC 33.3 RDW 17.1 H Plt Count 198 MPV 8.7 Neut % (Auto) Lymph % (Auto) [place] % (Auto) Eos % (Auto) Baso % (Auto) Neut # (Auto) Lymph # (Auto) [place] # (Auto) Eos # (Auto) Baso # (Auto) APTT 38 H D Sodium Potassium Chloride Carbon Dioxide Anion Gap BUN Creatinine Est GFR ( Amer) Est GFR (Non-Af Amer) Random Glucose Calcium Phosphorus Magnesium Total Bilirubin AST ALT Alkaline Phosphatase Troponin I Total Protein Albumin Globulin Albumin/Globulin Ratio Urine Collection Time 24 Urine Total Volume 2375 Ur Protein 24 Hr Calc 1615.0 H Complement C3 Complement C4 Hepatitis A IgM Ab Hep Bs Antigen Hep B Core IgM Ab Hepatitis C Antibody 03/22/18 03/22/18 10:17 10:17 WBC RBC Hgb Hct MCV MCH MCHC RDW Plt Count MPV Neut % (Auto) Lymph % (Auto) [place] % (Auto) Eos % (Auto) Baso % (Auto) Neut # (Auto) Lymph # (Auto) [place] # (Auto) Eos # (Auto) Baso # (Auto) APTT Sodium Potassium Chloride Carbon Dioxide Anion Gap BUN Creatinine Est GFR ( Amer) Est GFR (Non-Af Amer) Random Glucose Calcium Phosphorus Magnesium Total Bilirubin AST ALT Alkaline Phosphatase Troponin I Total Protein Albumin Globulin Albumin/Globulin Ratio Urine Collection Time Urine Total Volume Ur Protein 24 Hr Calc Complement C3 127.0 Complement C4 65.3 H Hepatitis A IgM Ab Negative Hep Bs Antigen Negative Hep B Core IgM Ab Negative Hepatitis C Antibody Negative
--- NOTE | 2018-03-22 22:35 | CP.PCM.PN ---
Subjective - Date & Time of Evaluation Date of Evaluation: 03/22/18 Time of Evaluation: 19:40 - Subjective Subjective: pt is seen and examined, is on heparin dri, plavix, statin s/p non-ST elevation MD. Patient also had impending heart failure., is for cardiac cath with Now having no chest pain. Underwent angiogram today. Objective - Vital Signs/Intake and Output Vital Signs (last 24 hours): Temp Pulse Resp BP Pulse Ox 98.8 F 76 25 H 115/52 L 97 03/22/18 20:00 03/22/18 22:00 03/22/18 22:00 03/22/18 21:57 03/22/18 22:00 Intake and Output: 03/22/18 03/23/18 18:59 06:59 Intake Total 1070.5 50.1 Output Total 2650 Balance -1579.5 50.1 - Medications Medications: Current Medications Aspirin (Ecotrin) 325 mg PO DAILY [facility] Last Admin: 03/22/18 09:03 Dose: 325 mg Carvedilol (Coreg) 25 mg PO BID [facility] Last Admin: 03/22/18 18:13 Dose: 25 mg Famotidine (Pepcid) 20 mg PO DAILY [facility] Last Admin: 03/22/18 09:02 Dose: 20 mg Furosemide (Lasix) 40 mg IVP DAILY [facility] Last Admin: 03/22/18 13:29 Dose: 40 mg Hydralazine HCl (Apresoline) 25 mg PO TID [facility] Last Admin: 03/22/18 18:14 Dose: 25 mg Heparin Sodium/Sodium Chloride (Heparin 27032 Units/250ml 1/2 Normal Saline) 25 ,000 units in 250 mls @ 16.765 mls/hr IV .[id number] PRN; Protocol; 11 UNITS/KG/HR PRN Reason: ADJUST RATE PER PROTOCOL Last Titration: 03/22/18 16:20 Dose: 11 units/kg/hr, 16.765 mls/hr Rosuvastatin Calcium (Crestor) 10 mg PO HS [facility] Last Admin: 03/22/18 22:11 Dose: 10 mg - Labs Labs: 03/22/18 06:32 03/22/18 05:22 PT 12.4 SECONDS (9.7-12.2) H 03/21/18 01:23 INR 1.1 03/21/18 01:23 APTT 38 SECONDS (21-34) H D 03/22/18 05:22 - Constitutional Appears: No Acute Distress - Head Exam Head Exam: ATRAUMATIC, NORMAL INSPECTION, NORMOCEPHALIC - Eye Exam Eye Exam: EOMI, Normal appearance, PERRL Pupil Exam: NORMAL ACCOMODATION, PERRL - Respiratory Exam Respiratory Exam: Decreased Breath Sounds - Cardiovascular Exam Cardiovascular Exam: REGULAR RHYTHM, +S1, +S2, +S4. absent: Murmur - GI/Abdominal Exam GI & Abdominal Exam: Soft, Normal Bowel Sounds. absent: Tenderness Assessment and Plan (1) Non compliance w medication regimen Status: Acute (2) CAD (coronary artery disease) Status: Acute (3) Acute MD Status: Acute (4) Hypertension Status: Acute
[2018-03-22 22:51] LABS: CREATININE, RANDOM URINE 123.4 mg/dL
[2018-03-23] MEDS: Heparin25000 units/250ml 1/2NS 25,000 UNITS/250 ML BAG IV PRN (02:12)
[2018-03-23 05:12] LABS: HEMOGLOBIN 12.1 g/dL (12.0-18.0); MEAN CORPUSCULAR HEMOGLOBIN 26.7 pg (27.0-31.0); MEAN CORPUSCULAR HGB CONC 33.4 g/dL (33.0-37.0); MEAN PLATELET VOLUME 9.1 fL (7.2-11.7); RBC 4.52 Mil/uL (4.40-5.90); RED CELL DISTRIBUTION WIDTH 17.4 % (11.5-14.5); WHITE BLOOD COUNT 9.3 K/uL (4.8-10.8)
[2018-03-23 05:58] LABS: ALB/GLOB RATIO 1.1 (1.0-2.1); ALT/SGPT 52 U/L (21-72); AST/SGOT 65 U/L (17-59); B-TYPE NATRIURETIC PEPTIDE 1260 pg/mL (0-450); BLOOD UREA NITROGEN 25 mg/dL (9-20); CALCIUM 8.6 mg/dl (8.6-10.4); GFR AFRICAN-AMERICAN > 60; GFR NON-AFRICAN AMERICAN 52
[2018-03-23] MEDS ORDERED: Potassium Chloride 20 mEq ER Tab PO STA (06:02)
[2018-03-23 08:34] VITALS: TEMP 97.7
[2018-03-23] MEDS: Aspirin 325 mg EC Tablets PO SCH (09:24)
[2018-03-23 09:25] VITALS: BP 151/79
[2018-03-23 10:39] VITALS: PULSE 86; RESP 14; O2SAT 92
--- NOTE | 2018-03-23 13:58 | CP.CCUPN ---
CCU Subjective - Physician Review Subjective (Free Text): Patient seen and examined. Denies any chest pain, palpitations, SOB, fever, abdominal pain, changes in bowel habits or urinary symptoms. CCU Objective - Vital Signs / Intake & Output Vital Signs (Last 4 hours): Vital Signs Pulse Resp Pulse Ox 03/23/18 10:30 86 14 92 L 03/23/18 10:20 83 22 93 L 03/23/18 10:10 77 25 H 92 L 03/23/18 10:00 85 23 93 L Intake and Output (Last 8hrs): Intake & Output 03/22/18 03/23/18 03/23/18 22:59 06:59 14:59 Intake Total 586.9 556.6 170.1 Output Total 1800 400 Balance -1213.1 556.6 -229.9 Weight 336 lb Intake: IV 0 183 Intake, IV Amount 116.9 133.6 50.1 Right Antecubital 50.1 Right Hand 116.9 133.6 Oral 470 240 120 Output: Urine 1800 400 Urine, Voided 1800 400 Other: # Bowel Movements 0 - Physical Exam Head: Positive for: Atraumatic, Normocephalic Pupils: Positive for: PERRL Mouth: Positive for: Moist Mucous Membranes Cardiovascular: Positive for: Regular Rate and Rhythm, Normal S1, S2 Abdomen: Negative for: Tenderness Lower Extremity: Negative for: Edema Neurological: Positive for: GCS=15 - Patient Studies Lab Studies: Lab Studies 03/23/18 03/23/18 03/23/18 Range/Units 05:10 05:06 05:06 WBC 9.3 (4.8-10.8) K/uL RBC 4.52 (4.40-5.90) Mil/uL Hgb 12.1 (12.0-18.0) g/dL Hct 36.2 (35.0-51.0) % MCV 80.0 (80.0-94.0) fL MCH 26.7 L (27.0-31.0) pg MCHC 33.4 (33.0-37.0) g/dL RDW 17.4 H (11.5-14.5) % Plt Count 183 (130-400) K/uL MPV 9.1 (7.2-11.7) fL APTT 55 H D (21-34) SECONDS Sodium 140 (132-148) mmol/L Potassium 3.4 L (3.6-5.2) mmol/L Chloride 100 (98-107) mmol/L Carbon Dioxide 32 H (22-30) mmol/L Anion Gap 11 (10-20) BUN 25 H (9-20) mg/dL Creatinine 1.5 (0.8-1.5) mg/dL Est GFR ( Amer) > 60 Est GFR (Non-Af Amer) 52 Random Glucose 95 (75-110) mg/dL Calcium 8.6 (8.6-10.4) mg/dl Phosphorus 3.3 (2.5-4.5) mg/dL Magnesium 1.9 (1.6-2.3) mg/dL Total Bilirubin 0.8 (0.2-1.3) mg/dL AST 65 H D (17-59) U/L ALT 52 (21-72) U/L Alkaline Phosphatase 99 (38-126) U/L Troponin I 24.5000 H* (0.00-0.120) ng/mL NT-Pro-B Natriuret Pep 1260 H (0-450) pg/mL Total Protein 7.7 (6.3-8.3) g/dL Albumin 4.0 (3.5-5.0) g/dL Globulin 3.7 (2.2-3.9) gm/dL Albumin/Globulin Ratio 1.1 (1.0-2.1) Ur Random Creatinine mg/dL U Random Total Protein (0.0-12.0) mg/dL JULISA 6 Profile (NEGATIVE) 03/22/18 03/22/18 03/22/18 Range/Units 22:34 22:34 11:58 WBC (4.8-10.8) K/uL RBC (4.40-5.90) Mil/uL Hgb (12.0-18.0) g/dL Hct (35.0-51.0) % MCV (80.0-94.0) fL MCH (27.0-31.0) pg MCHC (33.0-37.0) g/dL RDW (11.5-14.5) % Plt Count (130-400) K/uL MPV (7.2-11.7) fL APTT 62 H D (21-34) SECONDS Sodium (132-148) mmol/L Potassium (3.6-5.2) mmol/L Chloride (98-107) mmol/L Carbon Dioxide (22-30) mmol/L Anion Gap (10-20) BUN (9-20) mg/dL Creatinine (0.8-1.5) mg/dL Est GFR ( Amer) Est GFR (Non-Af Amer) Random Glucose (75-110) mg/dL Calcium (8.6-10.4) mg/dl Phosphorus (2.5-4.5) mg/dL Magnesium (1.6-2.3) mg/dL Total Bilirubin (0.2-1.3) mg/dL AST (17-59) U/L ALT (21-72) U/L Alkaline Phosphatase (38-126) U/L Troponin I (0.00-0.120) ng/mL NT-Pro-B Natriuret Pep (0-450) pg/mL Total Protein (6.3-8.3) g/dL Albumin (3.5-5.0) g/dL Globulin (2.2-3.9) gm/dL Albumin/Globulin Ratio (1.0-2.1) Ur Random Creatinine 123.4 mg/dL U Random Total Protein 40.0 H (0.0-12.0) mg/dL JULISA 6 Profile Negative (NEGATIVE) Laboratory Results - last 24 hr 03/22/18 03/22/18 03/22/18 11:58 22:34 22:34 WBC RBC Hgb Hct MCV MCH MCHC RDW Plt Count MPV APTT 62 H D Sodium Potassium Chloride Carbon Dioxide Anion Gap BUN Creatinine Est GFR ( Amer) Est GFR (Non-Af Amer) Random Glucose Calcium Phosphorus Magnesium Total Bilirubin AST ALT Alkaline Phosphatase Troponin I NT-Pro-B Natriuret Pep Total Protein Albumin Globulin Albumin/Globulin Ratio Ur Random Creatinine 123.4 U Random Total Protein 40.0 H JULISA 6 Profile Negative 03/23/18 03/23/18 03/23/18 05:06 05:06 05:10 WBC 9.3 RBC 4.52 Hgb 12.1 Hct 36.2 MCV 80.0 MCH 26.7 L MCHC 33.4 RDW 17.4 H Plt Count 183 MPV 9.1 APTT 55 H D Sodium 140 Potassium 3.4 L Chloride 100 Carbon Dioxide 32 H Anion Gap 11 BUN 25 H Creatinine 1.5 Est GFR ( Amer) > 60 Est GFR (Non-Af Amer) 52 Random Glucose 95 Calcium 8.6 Phosphorus 3.3 Magnesium 1.9 Total Bilirubin 0.8 AST 65 H D ALT 52 Alkaline Phosphatase 99 Troponin I 24.5000 H* NT-Pro-B Natriuret Pep 1260 H Total Protein 7.7 Albumin 4.0 Globulin 3.7 Albumin/Globulin Ratio 1.1 Ur Random Creatinine U Random Total Protein JULISA 6 Profile EKG/Cardiology Studies: Cardiology / EKG Studies 03/23/18 07:20 EKG [ELECTROCARDIOGRAM] DAILY Comment: Mode Of Transportation: PORTABLE Reason For Exam: CAD Review of Systems - Review of Systems Review of Systems: As per Subjective Critical Care Progress Note - Nutrition Nutrition: Nutrition Category Date Time Status Heart Healthy Diet [DIET] Diets 03/22/18 Lunch Active Assessment/Plan - Assessment and Plan (Free Text) Assessment: 42 year old male with a Hx of HTN and non-compliace. Patient admitted to ICU for NSTEMI. Echo showed 20%EF. Cardiac Cath showed triple Vessel Disease (100% RCA, 99%LAD, 80% Left circumflex) Plan: Neuro: GCS: 15 Sedation: None Cardio: Patient to be transferred to [facility] for Open Heart Surgery.
--- NOTE | 2018-03-23 22:44 | CP.PCM.DIS ---
Provider - Provider Date of Admission: 03/21/18 02:42 Attending physician: Wes Garcia MD Time Spent in preparation of Discharge (in minutes): 45 Diagnosis - Discharge Diagnosis (1) Acute [place] Status: Acute (2) CAD (coronary artery disease) Status: Acute (3) Hypertension Status: Acute (4) Non compliance w medication regimen Status: Acute Hospital Course - Lab Results Lab Results: Most Recent Lab Values WBC 9.3 K/uL (4.8-10.8) 03/23/18 05:06 RBC 4.52 Mil/uL (4.40-5.90) 03/23/18 05:06 Hgb 12.1 g/dL (12.0-18.0) 03/23/18 05:06 Hct 36.2 % (35.0-51.0) 03/23/18 05:06 MCV 80.0 fL (80.0-94.0) 03/23/18 05:06 MCH 26.7 pg (27.0-31.0) L 03/23/18 05:06 MCHC 33.4 g/dL (33.0-37.0) 03/23/18 05:06 RDW 17.4 % (11.5-14.5) H 03/23/18 05:06 Plt Count 183 K/uL (130-400) 03/23/18 05:06 MPV 9.1 fL (7.2-11.7) 03/23/18 05:06 Neut % (Auto) 74.9 % (50.0-75.0) 03/22/18 05:22 Lymph % (Auto) 14.3 % (20.0-40.0) L 03/22/18 05:22 [place] % (Auto) 9.2 % (0.0-10.0) 03/22/18 05:22 Eos % (Auto) 1.0 % (0.0-4.0) 03/22/18 05:22 Baso % (Auto) 0.6 % (0.0-2.0) 03/22/18 05:22 Neut # (Auto) 7.9 K/uL (1.8-7.0) H 03/22/18 05:22 Lymph # (Auto) 1.5 K/uL (1.0-4.3) 03/22/18 05:22 [place] # (Auto) 1.0 K/uL (0.0-0.8) H 03/22/18 05:22 Eos # (Auto) 0.1 K/uL (0.0-0.7) 03/22/18 05:22 Baso # (Auto) 0.1 K/uL (0.0-0.2) 03/22/18 05:22 PT 12.4 SECONDS (9.7-12.2) H 03/21/18 01:23 INR 1.1 03/21/18 01:23 APTT 55 SECONDS (21-34) H D 03/23/18 05:10 D-Dimer, Quantitative 244 ng/mlDDU (0-243) H 03/21/18 01:23 Sodium 140 mmol/L (132-148) 03/23/18 05:06 Potassium 3.4 mmol/L (3.6-5.2) L 03/23/18 05:06 Chloride 100 mmol/L (98-107) 03/23/18 05:06 Carbon Dioxide 32 mmol/L (22-30) H 03/23/18 05:06 Anion Gap 11 (10-20) 03/23/18 05:06 BUN 25 mg/dL (9-20) H 03/23/18 05:06 Creatinine 1.5 mg/dL (0.8-1.5) 03/23/18 05:06 Est GFR ( Amer) > 60 03/23/18 05:06 Est GFR (Non-Af Amer) 52 03/23/18 05:06 Random Glucose 95 mg/dL (75-110) 03/23/18 05:06 Hemoglobin A1c 5.4 % (4.2-6.5) 03/21/18 11:16 Calcium 8.6 mg/dl (8.6-10.4) 03/23/18 05:06 Phosphorus 3.3 mg/dL (2.5-4.5) 03/23/18 05:06 Magnesium 1.9 mg/dL (1.6-2.3) 03/23/18 05:06 Total Bilirubin 0.8 mg/dL (0.2-1.3) 03/23/18 05:06 AST 65 U/L (17-59) H D 03/23/18 05:06 ALT 52 U/L (21-72) 03/23/18 05:06 Alkaline Phosphatase 99 U/L (38-126) 03/23/18 05:06 Total Creatine Kinase 88 U/L (55-170) 03/21/18 01:23 CK-MB (Mass) 71.1 ng/mL (0.0-3.38) H 03/21/18 04:31 Troponin I 24.5000 ng/mL (0.00-0.120) H* 03/23/18 05:06 NT-Pro-B Natriuret Pep 1260 pg/mL (0-450) H 03/23/18 05:06 Total Protein 7.7 g/dL (6.3-8.3) 03/23/18 05:06 Total Protein (PEP) 6.1 g/dL (6.1-8.1) 03/22/18 10:17 Albumin 4.0 g/dL (3.5-5.0) 03/23/18 05:06 Globulin 3.7 gm/dL (2.2-3.9) 03/23/18 05:06 Albumin/Globulin Ratio 1.1 (1.0-2.1) 03/23/18 05:06 Urine Color Straw (YELLOW) 03/21/18 01:44 Urine Clarity Clear (Clear) 03/21/18 01:44 Urine pH 6.0 (5.0-8.0) 03/21/18 01:44 Ur Specific [place] 1.010 (1.003-1.030) 03/21/18 01:44 Urine Protein 3+ mg/dL (NEGATIVE) H 03/21/18 01:44 Urine Glucose (UA) 1+ mg/dL (Normal) H 03/21/18 01:44 Urine Ketones Negative mg/dL (NEGATIVE) 03/21/18 01:44 Urine Blood Negative (NEGATIVE) 03/21/18 01:44 Urine Nitrate Negative (NEGATIVE) 03/21/18 01:44 Urine Bilirubin Negative (NEGATIVE) 03/21/18 01:44 Urine Urobilinogen Normal mg/dL (0.2-1.0) 03/21/18 01:44 Ur Leukocyte Esterase Neg Fartun/uL (Negative) 03/21/18 01:44 Urine WBC (Auto) 3 /hpf (0-5) 03/21/18 01:44 Urine RBC (Auto) 1 /hpf (0-3) 03/21/18 01:44 Ur Random Creatinine 123.4 mg/dL 03/22/18 22:34 U Random Total Protein 40.0 mg/dL (0.0-12.0) H 03/22/18 22:34 Urine Collection Time 24 HRS 03/22/18 08:24 Urine Total Volume 2375 mL 03/22/18 08:24 Ur Protein 24 Hr Calc 1615.0 mg/24hr (42-225) H 03/22/18 08:24 Urine Opiates Screen Negative (NEGATIVE) 03/21/18 01:44 Urine Methadone Screen Negative (NEGATIVE) 03/21/18 01:44 Ur Barbiturates Screen Negative (NEGATIVE) 03/21/18 01:44 Ur Phencyclidine Scrn Negative (NEGATIVE) 03/21/18 01:44 Ur Amphetamines Screen Negative (NEGATIVE) 03/21/18 01:44 U Benzodiazepines Scrn Negative (NEGATIVE) 03/21/18 01:44 U Oth Cocaine Metabols Negative (NEGATIVE) 03/21/18 01:44 U Cannabinoids Screen Negative (NEGATIVE) 03/21/18 01:44 JULISA 6 Profile Negative (NEGATIVE) 03/22/18 11:58 Complement C3 127.0 mg/dL (88.0-165.0) 03/22/18 10:17 Complement C4 65.3 mg/dL (14.0-44.0) H 03/22/18 10:17 Hepatitis A IgM Ab Negative (NEGATIVE) 03/22/18 10:17 Hep Bs Antigen Negative (NEGATIVE) 03/22/18 10:17 Hep B Core IgM Ab Negative (NEGATIVE) 03/22/18 10:17 Hepatitis C Antibody Negative (NEGATIVE) 03/22/18 10:17 - Hospital Course Hospital Course: 42 year old male with a Hx of HTN and non-compliace. Patient admitted to ICU for NSTEMI. Echo showed 20%EF. Cardiac Cath showed triple Vessel Disease (100% RCA, 99%LAD, 80% Left circumflex) Discharge Exam - Head Exam Head Exam: NORMAL INSPECTION Discharge Plan - Follow Up Plan Condition: SERIOUS Disposition: Trans to Other Acute Care Hosp Instructions: Heart Attack (DC), Coronary Artery Bypass Grafting (DC)
--- NOTE | 2018-03-24 18:49 | CARD ---
APPROVED REPORT EXAM: Two-dimensional and M-mode echocardiogram with Doppler and color Doppler. Other Information Quality : TDSRhythm : INDICATION Acute GA Congestive Heart Failure RISK FACTORS Hypertension 2D DIMENSIONS IVSd1.4 (0.7-1.1cm)LVDd5.9 (3.9-5.9cm) PWd1.7 (0.7-1.1cm)LVDs4.8 (2.5-4.0cm) FS (%) 19.0 %LVEF (%)38.6 (>50%) M-Mode DIMENSIONS IVSd0.98 (0.7-1.1cm)LVDd8.63 (4.0-5.6cm) PWd1.35 (0.7-1.1cm)FS (%) 20 % LVDs6.94 (2.0-3.8cm)LVEF (%)39 (>50%) Mitral Valve MV E Jazlcvve483.3cm/sMV A Qynvskkb145.8cm/sE/A ratio1.1 TDI E/Lateral E'0.0E/Medial E'0.0 Tricuspid Valve TR Peak [id number]/sTR Peak Gr.[id number] LEFT VENTRICLE The Left Ventricle is mildly dilated. There is mild concentric left ventricular hypertrophy. Left ventricle systolic function is moderately to severely impaired. The Ejection Fraction is 35-40%. Regional wall motion abnormalities noted. The left ventricular diastolic function is normal. No left ventricle thrombus noted on this study. RIGHT VENTRICLE The right ventricle is normal size. The right ventricular systolic function is normal. ATRIA The left atrium size is normal. The right atrium size is normal. AORTIC VALVE The aortic valve is not well visualized. No aortic regurgitation is present. There is no aortic valvular stenosis. There is no aortic valvular vegetation. MITRAL VALVE Mitral annular calcification is mild. There is no evidence of mitral valve prolapse. There is no mitral valve stenosis. Mitral regurgitation is mild. TRICUSPID VALVE The tricuspid valve is normal in structure. There is trace to mild tricuspid regurgitation. Right ventricular systolic pressure is estimated at less than 30 mmHg. There is no pulmonary hypertension. There is no tricuspid valve prolapse or vegetation. There is no tricuspid valve stenosis. PULMONIC VALVE The pulmonic valve is not well visualized. There is no pulmonic valvular regurgitation. GREAT VESSELS The aortic root is normal in size. The IVC is normal in size and collapses >50% with inspiration. PERICARDIAL EFFUSION There is no pericardial effusion. There is no pleural effusion. <Conclusion> This is a technically difficult study. The Left Ventricle appears mildly dilated. There is mild concentric left ventricular hypertrophy. Left ventricle systolic function is moderately to severely impaired. The Ejection Fraction is 35-40%. The left ventricular diastolic function is normal. The right ventricle is normal size. The right ventricular systolic function appears normal. The left and right atrium size is normal. Mitral regurgitation is mild. There is trace to mild tricuspid regurgitation.
== END 2018-03-23 10:45 | disposition short-term general hospital (02) | DRG 280 ==
LOC: C.ER 00:37 → C.9I 02:42
PROVIDERS: ADMIT Internal Medicine; ATTEND Internal Medicine
PROC: 4A023N7 Measurement of Cardiac Sampling and Pressure, Left Heart, Percutaneous Approach (ICD-10-PCS; principal; 2018-03-22)
PROC: B2111ZZ Fluoroscopy of Multiple Coronary Arteries using Low Osmolar Contrast (ICD-10-PCS; 2018-03-22)
PROC: B2131ZZ Fluoroscopy of Multiple Coronary Artery Bypass Grafts using Low Osmolar Contrast (ICD-10-PCS; 2018-03-22)
DX: I21.4 Non-ST elevation (NSTEMI) myocardial infarction (principal); I50.21 Acute systolic (congestive) heart failure; I42.0 Dilated cardiomyopathy; I13.0 Hypertensive heart and chronic kidney disease with heart failure and stage 1 through stage 4 chronic kidney disease, or unspecified chronic kidney disease; Z68.43 Body mass index [BMI] 50.0-59.9, adult; E87.6 Hypokalemia; E11.22 Type 2 diabetes mellitus with diabetic chronic kidney disease; N18.3 Chronic kidney disease, stage 3 (moderate); Z91.19 Patient's noncompliance with other medical treatment and regimen; I25.10 Atherosclerotic heart disease of native coronary artery without angina pectoris; I25.82 Chronic total occlusion of coronary artery; I25.5 Ischemic cardiomyopathy; Z91.14 Patient's other noncompliance with medication regimen; Z87.891 Personal history of nicotine dependence; E66.9 Obesity, unspecified